=== PATIENT | male | born 1950 | race Caucasian/White ===

== ENCOUNTER 2017-04-03 09:49 | Inpatient (IN) ==
[2017-04-03] MEDS: Ipratropium/Albuterol Neb 3 ML IH PRN (15:28)
[2017-04-03] MEDS: *HR* OxyCODONE ER (12 HR) 40 MG TABLET PO SCH (18:54)
[2017-04-03] MEDS: Furosemide 40 MG TABLET PO SCH (18:54)
[2017-04-03] MEDS: Insulin NPH/REG 70/30 100 UNIT/ML (x5UNIT) SQ SCH (18:54)
[2017-04-03] MEDS: Apixaban 5 MG TABLET PO SCH (20:56)
[2017-04-04] MEDS: Ipratropium/Albuterol Neb 3 ML IH PRN ×2 (01:05→13:34)
[2017-04-04] MEDS: Levothyroxine 25 MCG TABLET PO SCH (05:49)
[2017-04-04] MEDS: *HR* OxyCODONE ER (12 HR) 40 MG TABLET PO SCH ×2 (05:49→16:40)
[2017-04-04 06:44] LABS: Basophils % 0.2 %; Eosinophils # 0.5 K/mcL (0.0-0.6); Eosinophils % 4.6 %; Hematocrit 40.9 % (37.5-50.1); Immature Granulocytes % 1.3 % (0-4); Lymphocytes # 2.5 K/mcL (0.6-4.6); Lymphocytes % 21.1 %; Mean Corpuscular HGB Conc 29.3 g/dL (31.6-35.5); Mean Corpuscular Hemoglobin 25.7 pg (28.0-33.3); Mean Corpuscular Volume 87.6 fL (83.0-100.0); Mean Platelet Volume 8.8 fL (9.4-12.4); Monocytes # 0.9 K/mcL (0.0-1.3); Monocytes % 7.8 %; Platelet Count 317 K/mcL (140-400); Red Blood Count 4.67 M/mcL (4.19-5.50); Red Cell Distribution Width 15.3 % (11.5-14.5)
[2017-04-04 06:47] LABS: Neutrophils # 7.5 K/mcL (1.6-8.9)
[2017-04-04 06:51] LABS: INR 1.1; Prothrombin Time 11.6 Seconds (9.4-12.1)
[2017-04-04 06:54] LABS: Activated Partial Thrombo Time 28.3 Seconds (26.0-36.0)
[2017-04-04 07:22] LABS: BUN/Creatinine Ratio 38 (6-26); Blood Urea Nitrogen 29 mg/dL (8-23); Calcium 8.2 mg/dL (8.6-10.3); Carbon Dioxide 46 mEq/L (23-29); Chloride 95 mEq/L (98-107); Glucose 134 mg/dL (70-105); Osmolality,Calculated 306 (280-300); Potassium 3.4 mEq/L (3.5-5.1); Sodium 144 mEq/L (136-145); eGFR For African Americans > 60 (> 60); eGFR For Non-African Americans > 60 (> 60)
[2017-04-04] MEDS: Lactobacillus 1 EACH CAP.SPRINK PO SCH (08:00)
[2017-04-04] MEDS: Metoprolol XL (24 HR) Succ 50 MG TAB.ER.24H PO SCH (08:00)
[2017-04-04] MEDS: Multivit/Ca/Min/Fe/FA 1 TAB TABLET PO SCH (08:01)
[2017-04-04] MEDS: Furosemide 40 MG TABLET PO SCH ×2 (08:01→16:40)
[2017-04-04] MEDS: Folic Acid 1 MG TABLET PO SCH (08:01)
[2017-04-04] MEDS: Apixaban 5 MG TABLET PO SCH ×2 (08:01→20:39)
[2017-04-04] MEDS: Insulin NPH/REG 70/30 100 UNIT/ML (x5UNIT) SQ SCH ×3 (08:01→16:41)
[2017-04-04] MEDS: Diltiazem CD (24hr) 120 MG CAPSULE PO SCH (08:01)
[2017-04-04] MEDS ORDERED: predniSONE 20 MG TABLET PO SCH (09:00)
--- NOTE | 2017-04-04 16:04 | Internal Med History&Physical ---
Date of Encounter: 04/04/17 Time of Encounter: 15:30 Assessment and Plan (1) Chronic atrial fibrillation Current visit: No Status: Acute Continue Eliquis. Continue Toprol and Cardizem for rate control. (2) Obstructive sleep apnea Current visit: No Status: Chronic Continue BiPAP at bedtime. (3) Hypokalemia Current visit: No Status: Acute Continue supplemental potassium and present dose Lasix. We will discontinue prednisone and monitor labs. (4) Diabetes mellitus type 2 in obese Current visit: No Status: Acute Hemoglobin A1c was 5.3% on 03/30/2017. Continue 70/30 insulin and monitor Accu- Cheks with SSI. (5) Acute exacerbation of congestive heart failure Current visit: No Status: Acute Continue Lasix, Zestril, and Toprol. Will monitor labs. Qualifiers: Heart failure type: unspecified Qualified Code(s): I50.9 - Heart failure, unspecified (6) Acute on chronic respiratory failure with hypoxia and hypercapnia Current visit: No Status: Acute Continue duo nebs when necessary. (7) Hypothyroidism Current visit: Yes Status: Chronic Continue Synthroid. Will check TSH in a.m. Qualifiers: Hypothyroidism type: unspecified Qualified Code(s): E03.9 - Hypothyroidism , unspecified Internal Medicine - H&P: HPI Chief complaint: Dyspnea Admitted From: Hospital to Hospital Transfer Plans for Post Hospital Care: Home History of present illness: Mr. Belcher is a 67 year old male who was hospitalized at [facility] March 30- after admission for dyspnea. He was diagnosed with exacerbation of COPD and acute on chronic CHF. He stabilized and was admitted to [facility] swing bed for ongoing care needs. His cardiovascular history is significant for hypertension. He has had chronic atrial fibrillation for approximately 2 years. He has been diagnosed with heart failure. An echocardiogram 10/17/2016 showed LVEF sited 50% valve function was not assessed on the limited study. The left ventricular end- diastolic diameter was elevated at 6.30 cm. The ventricular septum and posterior wall thickness measurements were normal at 1.0 cm. He denies ME DVT or pulmonary embolus. Reports a heart catheter done approximately 15 years ago without intervention. His respiratory history is significant for having smoked from age [age] up to 1 pack per day. He has a diagnosis of COPD and wears oxygen at home 01/09. He has NOAH and wears BiPAP at at bedtime. Past Med Surg Social Fam HX - Past Medical History Medical history: atrial fibrillation, diabetes, hypertension, RA, thyroid disease Psychiatric history: depression - Past Surgical History Surgical History: orthopedic, other - Social History Smoking Status: Former smoker Smokeless Tobacco Status: No Alcohol use: none Drug use: none - Family History Mother Living Status: Hx Family Cardiac Disorders: Yes Hx Family Endocrine Disorder: Yes (DM) Father Living Status: Hx Family Cardiac Disorders: Yes Internal Medicine - H&P: Meds Folic Acid 1 mg PO QAM 10/17/14 [History] Levothyroxine [Synthroid] 50 mcg PO QAM 10/18/14 [History] Apixaban [Eliquis] 5 mg PO BID 02/26/15 [History] Ipratropium/Albuterol Neb [Duoneb] 3 ml IH Q4H PRN 02/26/15 [History] Insulin Lispro Protamin/Lispro [Humalog Mix 75-25 Kwikpen] 25 unit SQ BID [History] Duloxetine HCl [Cymbalta] 60 mg PO DAILY 10/07/16 [History] Lisinopril [Zestril] 5 mg PO DAILY 10/07/16 [History] Metoprolol XL (24 HR) Succ [Toprol Xl] 50 mg PO DAILY 10/07/16 [History] Tamsulosin [Flomax] 0.4 mg PO DAILY 10/07/16 [History] Multivits,Ca,Min/Iron/FA/Lycop [Centrum Men's Tablet] 1 tab PO DAILY 10/17/16 [ History] Diltiazem CD (24hr) [Cardizem CD] 120 mg PO DAILY #30 cap.er.24h 01/22/17 [Rx] Lactobacillus [Culturelle] 2 each PO DAILY #20 cap.sprink 01/22/17 [Rx] OxyCODONE ER (12 HR) [OxyCONTIN] 80 mg PO Q12H 03/30/17 [History] Furosemide [Lasix] 80 mg PO BID #30 tablet 04/03/17 [Rx] Hydroxychloroquine [Plaquenuil] 400 mg PO QAM tablet 04/03/17 [Rx] Potassium Chloride 40 meq PO BID #30 tab.er.prt 04/03/17 [Rx] predniSONE [PredniSONE] 20 mg PO DAILY #4 tablet 04/03/17 [Rx] 3 Allergy/AdvReac Type Severity Reaction Status Date / Time clindamycin AdvReac Diarrhea Verified 11/23/16 07:17 All Systems PM: A 10-system review of systems was performed and is negative for pertinent findings except as documented above in the HPI. Review of systems: Gen.: He states his weight has decreased from 556 pounds 2 years ago to present weight of 440 pounds. He has had significant weight fluctuations past few weeks based on fluid retention Cardiovascular: As per history of present illness Respiratory: As per history of present illness GI: He denies disorders of his liver gallbladder or exocrine pancreas : He denies hematuria or dysuria or kidney stones Neurologic: He denies large distribution strokes or seizures. Endocrine: He was diagnosed with DM 2 approximately age 47. He has hypothyroidism but denies hyperlipidemia Hematology/oncology: He has anemia on most labs since 2015. He was unaware of this. He denies internal malignancies. Psychiatric: He has history of depression. 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 - Constitutional Vitals: Temp Pulse Resp BP Pulse Ox 98 F 74 18 116/78 97 04/04/17 06:43 04/04/17 06:43 04/04/17 06:43 04/04/17 06:43 04/04/17 06:43 Exam: Gen.: He is a well-developed morbidly obese male lying in bed who appears in no acute distress HEENT: Head is atraumatic and normocephalic. Eyes: EOMI. There is no scleral icterus. Mouth: Mucosa is moist. Neck: He has a large jowl. There is no thyromegaly or adenopathy noted. Heart: Irregularly irregular with rate approximately 96/m. No murmurs or gallops are heard. Lungs: No wheezes or crackles are heard. Abdomen: He has a large pannus. He has induration with woody edema of the left lateral abdominal wall. The abdomen is otherwise nontender to palpation. Extremities: He has very marked venous stasis pigmentation discoloration of his lower legs bilaterally. Dorsalis pedis and posterior tibial pulses are nonpalpable. He has trace to 1+ pitting edema lower legs and dorsum of the feet. Neurologic: Mental status: He is talkative and a good historian. Cranial nerves : Smile is symmetric. Forehead wrinkles bilaterally. Tongue protrudes midline. EOMI. Motor: There is no pronator drift with the left arm. The right arm does not move well secondary to previous brachial plexus injury. He appears to have right wrist drop. Cerebellar: Finger to nose is intact with the left hand and not attempted with the right hand. Skin: Warm and dry. Internal Med - H&P Results - Labs CBC & Chem 7: 04/04/17 05:41 04/04/17 05:41 Labs: Short CBC 04/04/17 Range/Units 05:41 WBC 11.6 H (4.3-11.1) K/mcL Hgb 12.0 L (12.9-16.9) g/dL Hct 40.9 (37.5-50.1) % Plt Count 317 (140-400) K/mcL Neutrophils # 7.5 (1.6-8.9) K/mcL [facility] 04/04/17 05:41 Sodium 144 Potassium 3.4 L Chloride 95 L Carbon Dioxide 46 H* BUN 29 H Creatinine 0.77 Glucose 134 H Calcium 8.2 L
[2017-04-05] MEDS: Ipratropium/Albuterol Neb 3 ML IH PRN ×2 (05:37→23:55)
[2017-04-05 05:40] LABS: Magnesium 1.9 mg/dL (1.6-2.6); Phosphorous 2.9 mg/dL (2.7-4.5)
[2017-04-05] MEDS: *HR* OxyCODONE ER (12 HR) 40 MG TABLET PO SCH ×2 (06:00→17:01)
[2017-04-05] MEDS: Levothyroxine 25 MCG TABLET PO SCH (06:00)
[2017-04-05] MEDS: Insulin NPH/REG 70/30 100 UNIT/ML (x5UNIT) SQ SCH ×2 (09:15→17:00)
[2017-04-05] MEDS: Diltiazem CD (24hr) 120 MG CAPSULE PO SCH (09:24)
[2017-04-05] MEDS: Furosemide 40 MG TABLET PO SCH ×2 (09:24→17:01)
[2017-04-05] MEDS: Multivit/Ca/Min/Fe/FA 1 TAB TABLET PO SCH (09:25)
[2017-04-05] MEDS: Apixaban 5 MG TABLET PO SCH ×2 (09:25→21:22)
[2017-04-05] MEDS: Folic Acid 1 MG TABLET PO SCH (09:25)
[2017-04-05] MEDS: Metoprolol XL (24 HR) Succ 50 MG TAB.ER.24H PO SCH (09:26)
[2017-04-05 10:23] LABS: Folate 21.4 ng/mL (3.0-16.0)
--- NOTE | 2017-04-05 10:32 | Internal Med Progress Note ---
Date of Encounter: 04/05/17 Time of Encounter: 10:25 - Assessment and plan (1) Chronic atrial fibrillation Current Visit: No Status: Acute Assessment and plan: April 05. Continue Eliquis with Toprol and Cardizem. (2) Obstructive sleep apnea Current Visit: No Status: Chronic Assessment and plan: April 05. Continue BiPAP (3) Hypokalemia Current Visit: No Status: Acute Assessment and plan: April 05. Continue Lasix and potassium. (4) Diabetes mellitus type 2 in obese Current Visit: No Status: Acute Assessment and plan: April 05. Hemoglobin A1c was 5.3% on 03/30/2017. Continue 70/30 insulin and monitor Accu-Cheks with SSI. (5) Acute exacerbation of congestive heart failure Current Visit: No Status: Acute Assessment and plan: April 05. Continue Lasix, Zestril, Toprol, and potassium. Qualifiers: Heart failure type: unspecified Qualified Code(s): I50.9 - Heart failure, unspecified (6) Acute on chronic respiratory failure with hypoxia and hypercapnia Current Visit: No Status: Acute Assessment and plan: April 05. Continue duo nebs when necessary (7) Hypothyroidism Current Visit: Yes Status: Chronic Assessment and plan: April 05. TSH has been ordered. Qualifiers: Hypothyroidism type: unspecified Qualified Code(s): E03.9 - Hypothyroidism , unspecified (8) Anemia Current Visit: Yes Status: Acute Assessment and plan: April 05. Anemia testing showed iron 48, transferrin saturation 18%, transferrin 189, and ferritin 128. B12 and folate are pending. Will start ferrous sulfate with vitamin C in a.m. Qualifiers: Anemia type: unspecified type Qualified Code(s): D64.9 - Anemia, unspecified - Subjective Interval history: April 05. He has no new complaints. - Constitutional Vitals: Temp Pulse Resp BP Pulse Ox 98.7 F 76 18 107/64 95 04/04/17 19:23 04/04/17 19:23 04/04/17 19:23 04/04/17 19:23 04/05/17 05:37 Exam: He is resting in bed and appears in no acute distress. Affect is bright and cheerful. I reviewed his medications and lab results. Internal Medicine: Result - Labs CBC & Chem 7: 04/04/17 05:41 04/04/17 05:41 - ABG Interpretation ABG results: PT/INR, D-dimer PT 11.6 Seconds (9.4-12.1) 04/04/17 05:41 Consult Discharge Plan - Plan Referrals: Valdo Morrow DO [Primary Care Provider] - 1 week
[2017-04-05] MEDS: Lactobacillus 1 EACH CAP.SPRINK PO SCH (11:05)
[2017-04-06] MEDS: Ascorbic Acid 500 MG TABLET PO SCH (06:29)
[2017-04-06] MEDS: *HR* OxyCODONE ER (12 HR) 40 MG TABLET PO SCH ×2 (06:29→17:47)
[2017-04-06] MEDS: Levothyroxine 25 MCG TABLET PO SCH (06:29)
[2017-04-06] MEDS: *HR* OxyCODONE Immed Rel 5 MG TABLET PO PRN (08:31)
[2017-04-06] MEDS: Apixaban 5 MG TABLET PO SCH ×2 (08:32→20:09)
[2017-04-06] MEDS: Metoprolol XL (24 HR) Succ 50 MG TAB.ER.24H PO SCH (08:32)
[2017-04-06] MEDS: Folic Acid 1 MG TABLET PO SCH (08:32)
[2017-04-06] MEDS: Multivit/Ca/Min/Fe/FA 1 TAB TABLET PO SCH (08:32)
[2017-04-06] MEDS: Furosemide 40 MG TABLET PO SCH ×2 (08:33→17:47)
[2017-04-06] MEDS: Diltiazem CD (24hr) 120 MG CAPSULE PO SCH (08:33)
[2017-04-06] MEDS: Insulin NPH/REG 70/30 100 UNIT/ML (x5UNIT) SQ SCH ×3 (08:33→17:47)
[2017-04-06] MEDS: Ipratropium/Albuterol Neb 3 ML IH PRN (22:02)
[2017-04-07] MEDS: *HR* OxyCODONE ER (12 HR) 40 MG TABLET PO SCH ×2 (06:38→18:38)
[2017-04-07] MEDS: Levothyroxine 25 MCG TABLET PO SCH (06:38)
[2017-04-07] MEDS: Ascorbic Acid 500 MG TABLET PO SCH (06:39)
[2017-04-07] MEDS: Insulin NPH/REG 70/30 100 UNIT/ML (x5UNIT) SQ SCH ×2 (09:40→18:37)
[2017-04-07] MEDS: Furosemide 40 MG TABLET PO SCH ×2 (09:41→18:38)
[2017-04-07] MEDS: Apixaban 5 MG TABLET PO SCH ×2 (09:42→20:40)
[2017-04-07] MEDS: Diltiazem CD (24hr) 120 MG CAPSULE PO SCH (09:42)
[2017-04-07] MEDS: Multivit/Ca/Min/Fe/FA 1 TAB TABLET PO SCH (09:42)
[2017-04-07] MEDS: Metoprolol XL (24 HR) Succ 50 MG TAB.ER.24H PO SCH (09:42)
[2017-04-07] MEDS: Folic Acid 1 MG TABLET PO SCH (09:42)
[2017-04-07] MEDS: *HR* OxyCODONE Immed Rel 5 MG TABLET PO PRN ×2 (09:43→20:40)
[2017-04-07] MEDS: Ipratropium/Albuterol Neb 3 ML IH PRN ×2 (10:38→23:59)
--- NOTE | 2017-04-07 15:30 | Internal Med Progress Note ---
Date of Encounter: 04/07/17 Time of Encounter: 15:20 - Assessment and plan (1) Chronic atrial fibrillation Current Visit: No Status: Acute Assessment and plan: April 05. Continue Eliquis with Toprol and Cardizem. (2) Obstructive sleep apnea Current Visit: No Status: Chronic Assessment and plan: April 05. Continue BiPAP (3) Hypokalemia Current Visit: No Status: Acute Assessment and plan: April 05. Continue Lasix and potassium. April 07. Recheck labs in a.m. (4) Diabetes mellitus type 2 in obese Current Visit: No Status: Acute Assessment and plan: April 05. Hemoglobin A1c was 5.3% on 03/30/2017. Continue 70/30 insulin and monitor Accu-Cheks with SSI. (5) Acute exacerbation of congestive heart failure Current Visit: No Status: Acute Assessment and plan: April 05. Continue Lasix, Zestril, Toprol, and potassium. Qualifiers: Heart failure type: unspecified Qualified Code(s): I50.9 - Heart failure, unspecified (6) Acute on chronic respiratory failure with hypoxia and hypercapnia Current Visit: No Status: Acute Assessment and plan: April 05. Continue duo nebs when necessary (7) Hypothyroidism Current Visit: Yes Status: Chronic Assessment and plan: April 05. TSH has been ordered. Laboratory 27. TSH was normal at 4.320. Continue present dose Synthroid. Qualifiers: Hypothyroidism type: unspecified Qualified Code(s): E03.9 - Hypothyroidism , unspecified (8) Anemia Current Visit: Yes Status: Acute Assessment and plan: April 05. Anemia testing showed iron 48, transferrin saturation 18%, transferrin 189, and ferritin 128. B12 and folate are pending. Will start ferrous sulfate with vitamin C in a.m. Qualifiers: Anemia type: unspecified type Qualified Code(s): D64.9 - Anemia, unspecified - Subjective Interval history: April 05. He has no new complaints. April 07. He has no new complaints and feels improved. - Constitutional Vitals: Temp Pulse Resp BP Pulse Ox 98.1 F 80 16 120/72 96 04/07/17 06:24 04/07/17 06:24 04/07/17 10:43 04/07/17 06:24 04/07/17 10:43 Exam: He is resting comfortably in bed and appears in no acute distress. His edema of lower legs and feet have lessened. His affect is bright and cheerful. I reviewed his medications and lab results. Internal Medicine: Result - Labs CBC & Chem 7: 04/04/17 05:41 04/04/17 05:41 - ABG Interpretation ABG results: PT/INR, D-dimer PT 11.6 Seconds (9.4-12.1) 04/04/17 05:41 Consult Discharge Plan - Plan Referrals: Valdo Morrow DO [Primary Care Provider] - 1 week
[2017-04-08] MEDS: Levothyroxine 25 MCG TABLET PO SCH (06:45)
[2017-04-08] MEDS: *HR* OxyCODONE ER (12 HR) 40 MG TABLET PO SCH ×2 (06:45→18:03)
[2017-04-08] MEDS: Ascorbic Acid 500 MG TABLET PO SCH (06:45)
[2017-04-08] MEDS: Insulin NPH/REG 70/30 100 UNIT/ML (x5UNIT) SQ SCH ×2 (09:01→18:03)
[2017-04-08] MEDS: Folic Acid 1 MG TABLET PO SCH ×2 (09:03→11:57)
[2017-04-08] MEDS: Apixaban 5 MG TABLET PO SCH ×2 (09:04→23:49)
[2017-04-08] MEDS: Multivit/Ca/Min/Fe/FA 1 TAB TABLET PO SCH (09:04)
[2017-04-08] MEDS: Furosemide 40 MG TABLET PO SCH ×3 (09:05→18:03)
[2017-04-08] MEDS: Ipratropium/Albuterol Neb 3 ML IH PRN ×2 (10:12→23:33)
--- NOTE | 2017-04-08 11:13 | Internal Med Progress Note ---
Date of Encounter: 04/08/17 Time of Encounter: 11:05 - Assessment and plan (1) Chronic atrial fibrillation Current Visit: No Status: Acute Assessment and plan: April 05. Continue Eliquis with Toprol and Cardizem. (2) Obstructive sleep apnea Current Visit: No Status: Chronic Assessment and plan: April 05. Continue BiPAP (3) Hypokalemia Current Visit: No Status: Acute Assessment and plan: April 05. Continue Lasix and potassium. April 07. Recheck labs in a.m. (4) Diabetes mellitus type 2 in obese Current Visit: No Status: Acute Assessment and plan: April 05. Hemoglobin A1c was 5.3% on 03/30/2017. Continue 70/30 insulin and monitor Accu-Cheks with SSI. (5) Acute exacerbation of congestive heart failure Current Visit: No Status: Acute Assessment and plan: April 05. Continue Lasix, Zestril, Toprol, and potassium. April 08. Clinically stable. Continue above regimen. Qualifiers: Heart failure type: unspecified Qualified Code(s): I50.9 - Heart failure, unspecified (6) Acute on chronic respiratory failure with hypoxia and hypercapnia Current Visit: No Status: Acute Assessment and plan: April 05. Continue duo nebs when necessary (7) Hypothyroidism Current Visit: Yes Status: Chronic Assessment and plan: April 05. TSH has been ordered. Laboratory . TSH was normal at 4.320. Continue present dose Synthroid. Qualifiers: Hypothyroidism type: unspecified Qualified Code(s): E03.9 - Hypothyroidism , unspecified (8) Anemia Current Visit: Yes Status: Acute Assessment and plan: April 05. Anemia testing showed iron 48, transferrin saturation 18%, transferrin 189, and ferritin 128. B12 and folate are pending. Will start ferrous sulfate with vitamin C in a.m. Qualifiers: Anemia type: unspecified type Qualified Code(s): D64.9 - Anemia, unspecified (9) Hypotension Current Visit: Yes Status: Acute Assessment and plan: April 08. Will discontinue Cardizem and lisinopril. Qualifiers: Hypotension type: unspecified hypotension type Qualified Code(s): I95.9 - Hypotension, unspecified - Subjective Interval history: April 05. He has no new complaints. April 07. He has no new complaints and feels improved. April 08. He has no new complaints. - Constitutional Vitals: Temp Pulse Resp BP Pulse Ox 97.7 F 102 15 81/55 94 04/08/17 06:49 04/08/17 06:49 04/08/17 10:13 04/08/17 06:49 04/08/17 10:13 Exam: He is lying in bed resting comfortably. His edema has slightly lessened further. I reviewed his medications and lab results. Internal Medicine: Result - Labs CBC & Chem 7: 04/04/17 05:41 04/04/17 05:41 - ABG Interpretation ABG results: PT/INR, D-dimer PT 11.6 Seconds (9.4-12.1) 04/04/17 05:41 Consult Discharge Plan - Plan Referrals: Valdo Morrow DO [Primary Care Provider] - 1 week
[2017-04-08] MEDS: *HR* OxyCODONE Immed Rel 5 MG TABLET PO PRN (23:49)
[2017-04-09 05:57] LABS: Basophils % 0.3 %; Eosinophils # 0.6 K/mcL (0.0-0.6); Eosinophils % 4.7 %; Hematocrit 36.5 % (37.5-50.1); Hemoglobin 11.1 g/dL (12.9-16.9); Lymphocytes # 2.5 K/mcL (0.6-4.6); Lymphocytes % 19.1 %; Mean Corpuscular HGB Conc 30.4 g/dL (31.6-35.5); Mean Corpuscular Hemoglobin 26.1 pg (28.0-33.3); Mean Corpuscular Volume 85.7 fL (83.0-100.0); Mean Platelet Volume 9.5 fL (9.4-12.4); Monocytes # 1.1 K/mcL (0.0-1.3); Monocytes % 8.3 %; Neutrophils # 8.8 K/mcL (1.6-8.9); Platelet Count 255 K/mcL (140-400); Red Blood Count 4.26 M/mcL (4.19-5.50); Red Cell Distribution Width 15.8 % (11.5-14.5); Segmented Neutrophils % 66.6 %
[2017-04-09] MEDS: *HR* OxyCODONE ER (12 HR) 40 MG TABLET PO SCH ×3 (06:14→20:23)
[2017-04-09] MEDS: Levothyroxine 25 MCG TABLET PO SCH (06:14)
[2017-04-09] MEDS: Ascorbic Acid 500 MG TABLET PO SCH (06:14)
[2017-04-09 07:06] LABS: BUN/Creatinine Ratio 21 (6-26); Blood Urea Nitrogen 20 mg/dL (8-23); Calcium 8.5 mg/dL (8.6-10.3); Carbon Dioxide 43 mEq/L (23-29); Chloride 92 mEq/L (98-107); Glucose 134 mg/dL (70-105); Osmolality,Calculated 297 (280-300); Potassium 3.6 mEq/L (3.5-5.1); Sodium 141 mEq/L (136-145); eGFR For African Americans > 60 (> 60); eGFR For Non-African Americans > 60 (> 60)
[2017-04-09] MEDS: Furosemide 40 MG TABLET PO SCH ×2 (08:00→17:14)
[2017-04-09] MEDS: Multivit/Ca/Min/Fe/FA 1 TAB TABLET PO SCH (08:00)
[2017-04-09] MEDS: Insulin NPH/REG 70/30 100 UNIT/ML (x5UNIT) SQ SCH ×2 (08:00→17:17)
[2017-04-09] MEDS: Apixaban 5 MG TABLET PO SCH ×2 (08:08→20:23)
[2017-04-09] MEDS: Ipratropium/Albuterol Neb 3 ML IH PRN (22:13)
[2017-04-10] MEDS: Levothyroxine 25 MCG TABLET PO SCH (06:03)
[2017-04-10] MEDS: *HR* OxyCODONE ER (12 HR) 40 MG TABLET PO SCH ×2 (06:03→17:29)
[2017-04-10] MEDS: Ascorbic Acid 500 MG TABLET PO SCH (06:03)
[2017-04-10] MEDS: Multivit/Ca/Min/Fe/FA 1 TAB TABLET PO SCH (08:08)
[2017-04-10] MEDS: Apixaban 5 MG TABLET PO SCH ×2 (08:08→20:31)
[2017-04-10] MEDS: Insulin NPH/REG 70/30 100 UNIT/ML (x5UNIT) SQ SCH ×2 (08:08→17:29)
[2017-04-10] MEDS: *HR* OxyCODONE Immed Rel 5 MG TABLET PO PRN (08:08)
[2017-04-10] MEDS: Furosemide 40 MG TABLET PO SCH ×2 (08:09→17:29)
--- NOTE | 2017-04-10 11:10 | Internal Med Progress Note ---
Date of Encounter: 04/10/17 Time of Encounter: 11:00 - Assessment and plan (1) Chronic atrial fibrillation Current Visit: No Status: Acute Assessment and plan: April 05. Continue Eliquis with Toprol and Cardizem. April 10. Continue Toprol and eliquis (2) Obstructive sleep apnea Current Visit: No Status: Chronic Assessment and plan: April 05. Continue BiPAP (3) Hypokalemia Current Visit: No Status: Acute Assessment and plan: April 05. Continue Lasix and potassium. April 07. Recheck labs in a.m. April 10. Potassium level normal. Continue present regimen (4) Diabetes mellitus type 2 in obese Current Visit: No Status: Acute Assessment and plan: April 05. Hemoglobin A1c was 5.3% on 03/30/2017. Continue 70/30 insulin and monitor Accu-Cheks with SSI. (5) Acute exacerbation of congestive heart failure Current Visit: No Status: Acute Assessment and plan: April 05. Continue Lasix, Zestril, Toprol, and potassium. April 08. Clinically stable. Continue above regimen. April 10. Remains stable on Lasix Toprol and potassium. He is off Zestril because of borderline hypotension. Qualifiers: Heart failure type: unspecified Qualified Code(s): I50.9 - Heart failure, unspecified (6) Acute on chronic respiratory failure with hypoxia and hypercapnia Current Visit: No Status: Acute Assessment and plan: April 05. Continue duo nebs when necessary (7) Hypothyroidism Current Visit: Yes Status: Chronic Assessment and plan: April 05. TSH has been ordered. Laboratory 27. TSH was normal at 4.320. Continue present dose Synthroid. Qualifiers: Hypothyroidism type: unspecified Qualified Code(s): E03.9 - Hypothyroidism , unspecified (8) Anemia Current Visit: Yes Status: Acute Assessment and plan: April 05. Anemia testing showed iron 48, transferrin saturation 18%, transferrin 189, and ferritin 128. B12 and folate are pending. Will start ferrous sulfate with vitamin C in a.m. April 10. B12 and folate were unremarkable. Continue ferrous sulfate with vitamin C. Qualifiers: Anemia type: unspecified type Qualified Code(s): D64.9 - Anemia, unspecified (9) Hypotension Current Visit: Yes Status: Acute Assessment and plan: April 08. Will discontinue Cardizem and lisinopril. April 10. Blood pressure improved off Cardizem and lisinopril. Continue present regimen Qualifiers: Hypotension type: unspecified hypotension type Qualified Code(s): I95.9 - Hypotension, unspecified - Subjective Interval history: April 05. He has no new complaints. April 07. He has no new complaints and feels improved. April 08. He has no new complaints. April 10. He has no new complaints except some stiffness in his neck. - Constitutional Vitals: Temp Pulse Resp BP Pulse Ox 98.1 F 95 18 93/57 94 04/10/17 06:33 04/10/17 06:33 04/10/17 06:33 04/10/17 06:33 04/10/17 06:33 Exam: He is resting comfortably in bed and appears in no acute distress. His affect is bright and cheerful. I reviewed his medications and lab results. Internal Medicine: Result - Labs CBC & Chem 7: 04/09/17 04:25 04/09/17 04:09 - ABG Interpretation ABG results: PT/INR, D-dimer PT 11.6 Seconds (9.4-12.1) 04/04/17 05:41 Consult Discharge Plan - Plan Referrals: Valdo Morrow DO [Primary Care Provider] - 1 week
[2017-04-10] MEDS: Folic Acid 1 MG TABLET PO SCH (12:32)
[2017-04-10] MEDS: Ipratropium/Albuterol Neb 3 ML IH PRN (22:30)
[2017-04-11] MEDS: *HR* OxyCODONE ER (12 HR) 40 MG TABLET PO SCH ×2 (06:15→16:08)
[2017-04-11] MEDS: Levothyroxine 25 MCG TABLET PO SCH (06:15)
[2017-04-11] MEDS: Ascorbic Acid 500 MG TABLET PO SCH (06:15)
[2017-04-11] MEDS: Insulin NPH/REG 70/30 100 UNIT/ML (x5UNIT) SQ SCH ×2 (08:05→16:09)
[2017-04-11] MEDS: Furosemide 40 MG TABLET PO SCH ×2 (08:06→16:09)
[2017-04-11] MEDS: Apixaban 5 MG TABLET PO SCH ×2 (08:06→20:08)
[2017-04-11] MEDS: Metoprolol XL (24 HR) Succ 50 MG TAB.ER.24H PO SCH (08:07)
[2017-04-11] MEDS: Multivit/Ca/Min/Fe/FA 1 TAB TABLET PO SCH (08:07)
[2017-04-11] MEDS: Ipratropium/Albuterol Neb 3 ML IH PRN ×2 (11:30→23:28)
[2017-04-12] MEDS: *HR* OxyCODONE ER (12 HR) 40 MG TABLET PO SCH ×2 (05:59→16:44)
[2017-04-12] MEDS: Levothyroxine 25 MCG TABLET PO SCH (05:59)
[2017-04-12] MEDS: Ascorbic Acid 500 MG TABLET PO SCH (06:00)
[2017-04-12] MEDS: Metoprolol XL (24 HR) Succ 50 MG TAB.ER.24H PO SCH (07:51)
[2017-04-12] MEDS: Furosemide 40 MG TABLET PO SCH ×2 (07:51→16:44)
[2017-04-12] MEDS: Multivit/Ca/Min/Fe/FA 1 TAB TABLET PO SCH (07:51)
[2017-04-12] MEDS: Insulin NPH/REG 70/30 100 UNIT/ML (x5UNIT) SQ SCH ×2 (07:52→16:45)
[2017-04-12] MEDS: Apixaban 5 MG TABLET PO SCH ×2 (07:53→20:03)
[2017-04-12] MEDS: Folic Acid 1 MG TABLET PO SCH (15:27)
--- NOTE | 2017-04-12 16:34 | Internal Med Progress Note ---
Date of Encounter: 04/12/17 Time of Encounter: 16:27 - Assessment and plan (1) Chronic atrial fibrillation Current Visit: No Status: Acute Assessment and plan: April 05. Continue Eliquis with Toprol and Cardizem. April 10. Continue Toprol and eliquis (2) Obstructive sleep apnea Current Visit: No Status: Chronic Assessment and plan: April 05. Continue BiPAP (3) Hypokalemia Current Visit: No Status: Acute Assessment and plan: April 05. Continue Lasix and potassium. April 07. Recheck labs in a.m. April 10. Potassium level normal. Continue present regimen April 12. Will recheck labs in a.m. (4) Diabetes mellitus type 2 in obese Current Visit: No Status: Acute Assessment and plan: April 05. Hemoglobin A1c was 5.3% on 03/30/2017. Continue 70/30 insulin and monitor Accu-Cheks with SSI. (5) Acute exacerbation of congestive heart failure Current Visit: No Status: Acute Assessment and plan: April 05. Continue Lasix, Zestril, Toprol, and potassium. April 08. Clinically stable. Continue above regimen. April 10. Remains stable on Lasix Toprol and potassium. He is off Zestril because of borderline hypotension. Qualifiers: Heart failure type: unspecified Qualified Code(s): I50.9 - Heart failure, unspecified (6) Acute on chronic respiratory failure with hypoxia and hypercapnia Current Visit: No Status: Acute Assessment and plan: April 05. Continue duo nebs when necessary (7) Hypothyroidism Current Visit: Yes Status: Chronic Assessment and plan: April 05. TSH has been ordered. Laboratory 27. TSH was normal at 4.320. Continue present dose Synthroid. Qualifiers: Hypothyroidism type: unspecified Qualified Code(s): E03.9 - Hypothyroidism , unspecified (8) Anemia Current Visit: Yes Status: Acute Assessment and plan: April 05. Anemia testing showed iron 48, transferrin saturation 18%, transferrin 189, and ferritin 128. B12 and folate are pending. Will start ferrous sulfate with vitamin C in a.m. April 10. B12 and folate were unremarkable. Continue ferrous sulfate with vitamin C. Qualifiers: Anemia type: unspecified type Qualified Code(s): D64.9 - Anemia, unspecified (9) Hypotension Current Visit: Yes Status: Acute Assessment and plan: April 08. Will discontinue Cardizem and lisinopril. April 10. Blood pressure improved off Cardizem and lisinopril. Continue present regimen Qualifiers: Hypotension type: unspecified hypotension type Qualified Code(s): I95.9 - Hypotension, unspecified - Subjective Interval history: April 05. He has no new complaints. April 07. He has no new complaints and feels improved. April 08. He has no new complaints. April 10. He has no new complaints except some stiffness in his neck. April 12. He has no new complaints - Constitutional Vitals: Temp Pulse Resp BP Pulse Ox 97.5 F L 97 20 121/61 97 04/12/17 07:02 04/12/17 07:02 04/12/17 07:02 04/12/17 07:02 04/12/17 07:02 Exam: He is resting comfortably in bed and appears in no acute distress. He has 0 to trace pitting edema bilaterally in his lower shins. I reviewed his medications and lab results. Internal Medicine: Result - Labs CBC & Chem 7: 04/09/17 04:25 04/09/17 04:09 - ABG Interpretation ABG results: PT/INR, D-dimer PT 11.6 Seconds (9.4-12.1) 04/04/17 05:41 Consult Discharge Plan - Plan Referrals: aVldo Morrow DO [Primary Care Provider] - 1 week
[2017-04-12] MEDS: Ipratropium/Albuterol Neb 3 ML IH PRN (19:49)
[2017-04-13] MEDS: *HR* OxyCODONE Immed Rel 5 MG TABLET PO PRN (02:42)
[2017-04-13] MEDS: Ascorbic Acid 500 MG TABLET PO SCH (05:52)
[2017-04-13] MEDS: Levothyroxine 25 MCG TABLET PO SCH (05:52)
[2017-04-13] MEDS: *HR* OxyCODONE ER (12 HR) 40 MG TABLET PO SCH ×2 (05:53→16:36)
[2017-04-13 07:05] LABS: Basophils # 0.1 K/mcL (0.0-0.2); Basophils % 0.6 %; Eosinophils # 0.5 K/mcL (0.0-0.6); Hematocrit 35.5 % (37.5-50.1); Hemoglobin 10.7 g/dL (12.9-16.9); Immature Granulocytes % 0.6 % (0-4); Lymphocytes # 2.4 K/mcL (0.6-4.6); Lymphocytes % 18.7 %; Mean Corpuscular HGB Conc 30.1 g/dL (31.6-35.5); Mean Corpuscular Hemoglobin 26.1 pg (28.0-33.3); Mean Corpuscular Volume 86.6 fL (83.0-100.0); Monocytes # 0.8 K/mcL (0.0-1.3); Monocytes % 6.4 %; Neutrophils # 8.8 K/mcL (1.6-8.9); Platelet Count 301 K/mcL (140-400); Red Cell Distribution Width 15.5 % (11.5-14.5); Segmented Neutrophils % 69.7 %
[2017-04-13 07:29] LABS: BUN/Creatinine Ratio 17 (6-26); Blood Urea Nitrogen 15 mg/dL (8-23); Calcium 8.3 mg/dL (8.6-10.3); Carbon Dioxide 42 mEq/L (23-29); Chloride 93 mEq/L (98-107); Glucose 151 mg/dL (70-105); Magnesium 2.1 mg/dL (1.6-2.6); Osmolality,Calculated 296 (280-300); Potassium 3.9 mEq/L (3.5-5.1); Sodium 141 mEq/L (136-145); eGFR For African Americans > 60 (> 60); eGFR For Non-African Americans > 60 (> 60)
[2017-04-13] MEDS: Multivit/Ca/Min/Fe/FA 1 TAB TABLET PO SCH (09:12)
[2017-04-13] MEDS: Apixaban 5 MG TABLET PO SCH ×2 (09:12→20:48)
[2017-04-13] MEDS: Metoprolol XL (24 HR) Succ 50 MG TAB.ER.24H PO SCH (09:12)
[2017-04-13] MEDS: Insulin NPH/REG 70/30 100 UNIT/ML (x5UNIT) SQ SCH ×2 (09:13→16:36)
[2017-04-13] MEDS: Furosemide 40 MG TABLET PO SCH ×2 (09:13→16:36)
[2017-04-13] MEDS: Ipratropium/Albuterol Neb 3 ML IH PRN ×2 (11:02→21:15)
--- NOTE | 2017-04-13 18:16 | Internal Med Progress Note ---
Date of Encounter: 04/13/17 Time of Encounter: 18:10 - Assessment and plan (1) Chronic atrial fibrillation Current Visit: No Status: Acute Assessment and plan: April 05. Continue Eliquis with Toprol and Cardizem. April 10. Continue Toprol and eliquis (2) Obstructive sleep apnea Current Visit: No Status: Chronic Assessment and plan: April 05. Continue BiPAP (3) Hypokalemia Current Visit: No Status: Acute Assessment and plan: April 05. Continue Lasix and potassium. April 07. Recheck labs in a.m. April 10. Potassium level normal. Continue present regimen April 12. Will recheck labs in a.m. April 13. Potassium level slightly improved to 3.9. Continue present management. (4) Diabetes mellitus type 2 in obese Current Visit: No Status: Acute Assessment and plan: April 05. Hemoglobin A1c was 5.3% on 03/30/2017. Continue 70/30 insulin and monitor Accu-Cheks with SSI. (5) Acute exacerbation of congestive heart failure Current Visit: No Status: Acute Assessment and plan: April 05. Continue Lasix, Zestril, Toprol, and potassium. April 08. Clinically stable. Continue above regimen. April 10. Remains stable on Lasix Toprol and potassium. He is off Zestril because of borderline hypotension. Qualifiers: Heart failure type: unspecified Qualified Code(s): I50.9 - Heart failure, unspecified (6) Acute on chronic respiratory failure with hypoxia and hypercapnia Current Visit: No Status: Acute Assessment and plan: April 05. Continue duo nebs when necessary (7) Hypothyroidism Current Visit: Yes Status: Chronic Assessment and plan: April 05. TSH has been ordered. Laboratory 27. TSH was normal at 4.320. Continue present dose Synthroid. Qualifiers: Hypothyroidism type: unspecified Qualified Code(s): E03.9 - Hypothyroidism , unspecified (8) Anemia Current Visit: Yes Status: Acute Assessment and plan: April 05. Anemia testing showed iron 48, transferrin saturation 18%, transferrin 189, and ferritin 128. B12 and folate are pending. Will start ferrous sulfate with vitamin C in a.m. April 10. B12 and folate were unremarkable. Continue ferrous sulfate with vitamin C. April 13. Hemoglobin unimproved at 10.7. Continue to monitor CBC periodically. Qualifiers: Anemia type: unspecified type Qualified Code(s): D64.9 - Anemia, unspecified (9) Hypotension Current Visit: Yes Status: Acute Assessment and plan: April 08. Will discontinue Cardizem and lisinopril. April 10. Blood pressure improved off Cardizem and lisinopril. Continue present regimen Qualifiers: Hypotension type: unspecified hypotension type Qualified Code(s): I95.9 - Hypotension, unspecified (10) Seborrhea Current Visit: Yes Status: Acute Assessment and plan: April 13. Will prescribe Lotrisone cream to face. - Subjective Interval history: April 05. He has no new complaints. April 07. He has no new complaints and feels improved. April 08. He has no new complaints. April 10. He has no new complaints except some stiffness in his neck. April 12. He has no new complaints April 13. He complains of rash on his face. - Constitutional Vitals: Temp Pulse Resp BP Pulse Ox 97.6 F 93 14 106/62 95 04/13/17 06:17 04/13/17 06:17 04/13/17 11:02 04/13/17 06:17 04/13/17 11:02 Exam: He has seborrheic dermatitis on a significant part of his lower face and mandibular area Internal Medicine: Result - Labs CBC & Chem 7: 04/13/17 06:13 04/13/17 06:13 Labs: Short CBC 04/13/17 Range/Units 06:13 WBC 12.6 H (4.3-11.1) K/mcL Hgb 10.7 L (12.9-16.9) g/dL Hct 35.5 L (37.5-50.1) % Plt Count 301 (140-400) K/mcL Neutrophils # 8.8 (1.6-8.9) K/mcL BMP 04/13/17 06:13 Sodium 141 Potassium 3.9 Chloride 93 L Carbon Dioxide 42 H* BUN 15 Creatinine 0.90 Glucose 151 H Calcium 8.3 L - ABG Interpretation ABG results: PT/INR, D-dimer PT 11.6 Seconds (9.4-12.1) 04/04/17 05:41 Consult Discharge Plan - Plan Referrals: Valdo Morrow DO [Primary Care Provider] - 1 week
[2017-04-13] MEDS: Clotrimazole/Betameth Dip CRM 45 APPL/45 GM TUBE TP SCH ×3 (19:33→20:49)
[2017-04-14] MEDS: *HR* OxyCODONE ER (12 HR) 40 MG TABLET PO SCH ×2 (05:29→18:10)
[2017-04-14] MEDS: Ascorbic Acid 500 MG TABLET PO SCH (05:30)
[2017-04-14] MEDS: Levothyroxine 25 MCG TABLET PO SCH (05:30)
[2017-04-14] MEDS: Furosemide 40 MG TABLET PO SCH ×2 (07:20→16:59)
[2017-04-14] MEDS: Insulin NPH/REG 70/30 100 UNIT/ML (x5UNIT) SQ SCH ×2 (07:21→16:59)
[2017-04-14] MEDS: Multivit/Ca/Min/Fe/FA 1 TAB TABLET PO SCH (08:30)
[2017-04-14] MEDS: Clotrimazole/Betameth Dip CRM 45 APPL/45 GM TUBE TP SCH ×2 (08:33→21:16)
[2017-04-14] MEDS: Apixaban 5 MG TABLET PO SCH ×2 (08:36→21:16)
[2017-04-14] MEDS: Metoprolol XL (24 HR) Succ 50 MG TAB.ER.24H PO SCH (08:37)
[2017-04-14] MEDS: Folic Acid 1 MG TABLET PO SCH (12:06)
[2017-04-14] MEDS: Ipratropium/Albuterol Neb 3 ML IH PRN (12:40)
[2017-04-14] MEDS: Tobramycin/Dex Opth DROPS 2.5 ML BOTTLE LEFT EYE SCH (21:16)
[2017-04-14] MEDS: Tobramycin/Dex Opth DROPS 2.5 ML BOTTLE RIGHT EYE SCH (21:17)
[2017-04-15] MEDS: Ascorbic Acid 500 MG TABLET PO SCH (06:15)
[2017-04-15] MEDS: Levothyroxine 25 MCG TABLET PO SCH (06:15)
[2017-04-15] MEDS: *HR* OxyCODONE ER (12 HR) 40 MG TABLET PO SCH ×2 (06:15→16:55)
[2017-04-15] MEDS: Tobramycin/Dex Opth DROPS 2.5 ML BOTTLE LEFT EYE SCH ×2 (09:40→20:13)
[2017-04-15] MEDS: Furosemide 40 MG TABLET PO SCH ×2 (09:40→16:55)
[2017-04-15] MEDS: Multivit/Ca/Min/Fe/FA 1 TAB TABLET PO SCH (09:40)
[2017-04-15] MEDS: Metoprolol XL (24 HR) Succ 50 MG TAB.ER.24H PO SCH (09:40)
[2017-04-15] MEDS: Clotrimazole/Betameth Dip CRM 45 APPL/45 GM TUBE TP SCH ×2 (09:41→20:12)
[2017-04-15] MEDS: Tobramycin/Dex Opth DROPS 2.5 ML BOTTLE RIGHT EYE SCH ×2 (09:41→20:13)
[2017-04-15] MEDS: Insulin NPH/REG 70/30 100 UNIT/ML (x5UNIT) SQ SCH ×2 (09:41→16:55)
[2017-04-15] MEDS: Apixaban 5 MG TABLET PO SCH ×2 (09:42→20:13)
[2017-04-15] MEDS: Ipratropium/Albuterol Neb 3 ML IH PRN (12:57)
[2017-04-16] MEDS: *HR* OxyCODONE Immed Rel 5 MG TABLET PO PRN ×2 (02:18→20:53)
[2017-04-16] MEDS: *HR* OxyCODONE ER (12 HR) 40 MG TABLET PO SCH ×2 (05:35→17:17)
[2017-04-16] MEDS: Ascorbic Acid 500 MG TABLET PO SCH (05:35)
[2017-04-16] MEDS: Levothyroxine 25 MCG TABLET PO SCH (05:35)
[2017-04-16] MEDS: Insulin NPH/REG 70/30 100 UNIT/ML (x5UNIT) SQ SCH ×2 (07:30→17:16)
[2017-04-16] MEDS: Furosemide 40 MG TABLET PO SCH ×2 (08:02→17:17)
[2017-04-16] MEDS: Clotrimazole/Betameth Dip CRM 45 APPL/45 GM TUBE TP SCH ×2 (08:03→20:16)
[2017-04-16] MEDS: Apixaban 5 MG TABLET PO SCH ×2 (08:03→20:15)
[2017-04-16] MEDS: Metoprolol XL (24 HR) Succ 50 MG TAB.ER.24H PO SCH (08:04)
[2017-04-16] MEDS: Multivit/Ca/Min/Fe/FA 1 TAB TABLET PO SCH (08:04)
[2017-04-16] MEDS: Tobramycin/Dex Opth DROPS 2.5 ML BOTTLE LEFT EYE SCH ×2 (08:04→20:15)
[2017-04-16] MEDS: Tobramycin/Dex Opth DROPS 2.5 ML BOTTLE RIGHT EYE SCH ×2 (08:05→20:16)
[2017-04-16] MEDS: Ipratropium/Albuterol Neb 3 ML IH PRN ×2 (11:01→18:08)
[2017-04-16] MEDS: Folic Acid 1 MG TABLET PO SCH (11:58)
[2017-04-17 06:35] VITALS: BP 126/77
[2017-04-17] MEDS: Ascorbic Acid 500 MG TABLET PO SCH (06:51)
[2017-04-17] MEDS: Levothyroxine 25 MCG TABLET PO SCH (06:51)
[2017-04-17] MEDS: *HR* OxyCODONE ER (12 HR) 40 MG TABLET PO SCH (06:52)
[2017-04-17] MEDS: Multivit/Ca/Min/Fe/FA 1 TAB TABLET PO SCH (07:36)
[2017-04-17] MEDS: Metoprolol XL (24 HR) Succ 50 MG TAB.ER.24H PO SCH (07:36)
[2017-04-17] MEDS: Clotrimazole/Betameth Dip CRM 45 APPL/45 GM TUBE TP SCH (07:37)
[2017-04-17] MEDS: Furosemide 40 MG TABLET PO SCH (07:37)
[2017-04-17] MEDS: Tobramycin/Dex Opth DROPS 2.5 ML BOTTLE LEFT EYE SCH (07:37)
[2017-04-17] MEDS: Tobramycin/Dex Opth DROPS 2.5 ML BOTTLE RIGHT EYE SCH (07:37)
[2017-04-17] MEDS: Insulin NPH/REG 70/30 100 UNIT/ML (x5UNIT) SQ SCH (07:37)
[2017-04-17] MEDS: Apixaban 5 MG TABLET PO SCH (07:39)
[2017-04-17] MEDS: Ipratropium/Albuterol Neb 3 ML IH PRN (09:30)
--- NOTE | 2017-04-17 10:53 | Discharge Summary ---
Date of Encounter: 04/17/17 Time of Encounter: 10:40 - Discharge Diagnosis (1) Chronic atrial fibrillation Priority: Primary Status: Acute (2) Obstructive sleep apnea Priority: Secondary Status: Chronic (3) Hypokalemia Priority: Secondary Status: Resolved (4) Diabetes mellitus type 2 in obese Priority: Secondary Status: Chronic (5) Acute exacerbation of congestive heart failure Priority: Secondary Status: Acute Qualifiers: Heart failure type: unspecified Qualified Code(s): I50.9 - Heart failure, unspecified (6) Acute on chronic respiratory failure with hypoxia and hypercapnia Priority: Secondary Status: Acute (7) Hypothyroidism Priority: Secondary Status: Chronic Qualifiers: Hypothyroidism type: unspecified Qualified Code(s): E03.9 - Hypothyroidism , unspecified (8) Anemia Priority: Secondary Status: Chronic Qualifiers: Anemia type: unspecified type Qualified Code(s): D64.9 - Anemia, unspecified (9) Hypotension Priority: Secondary Status: Resolved Qualifiers: Hypotension type: unspecified hypotension type Qualified Code(s): I95.9 - Hypotension, unspecified (10) Seborrhea Priority: Secondary Status: Acute Hospital course: Mr. Belcher is a 67 year old male who was hospitalized at [facility] March 30- after admission for dyspnea. He was diagnosed with exacerbation of COPD and acute on chronic CHF. He stabilized and was admitted to [facility] swing bed for ongoing care needs. Initial orders were written by the discharging physicians at [facility]. I saw him on April 04 and performed the swing bed history and physical. He had physical therapy and occupational therapy evaluations with ongoing intervention. He made satisfactory progress and he will continue with home health services including PT and OT. Cardizem and lisinopril were discontinued because of hypotension. His blood pressure returned to satisfactory level off his medications. Anemia testing showed findings consistent with iron deficiency. He will be given ferrous sulfate with vitamin C at discharge. Folate level returned elevated so folate dose was reduced to every other day. On April 17 arrangements were completed for him to be discharged home. He will follow with his PCP Dr. Morrow within 1 week. - Time Spent with Patient Total time spent providing and/or coordinating discharge services: - Discharge Medications Home Medications: Levothyroxine [Synthroid] 50 mcg PO QAM 10/18/14 [History] Apixaban [Eliquis] 5 mg PO BID 02/26/15 [History] Ipratropium/Albuterol Neb [Duoneb] 3 ml IH Q4H PRN 02/26/15 [History] Insulin Lispro Protamin/Lispro [Humalog Mix 75-25 Kwikpen] 25 unit SQ BID [History] Duloxetine HCl [Cymbalta] 60 mg PO DAILY 10/07/16 [History] Metoprolol XL (24 HR) Succ [Toprol Xl] 50 mg PO DAILY 10/07/16 [History] Tamsulosin [Flomax] 0.4 mg PO DAILY 10/07/16 [History] Multivits,Ca,Min/Iron/FA/Lycop [Centrum Men's Tablet] 1 tab PO DAILY 10/17/16 [ History] OxyCODONE ER (12 HR) [OxyCONTIN] 80 mg PO Q12H 03/30/17 [History] Furosemide [Lasix] 80 mg PO BID #30 tablet 04/03/17 [Rx] Hydroxychloroquine [Plaquenuil] 400 mg PO QAM tablet 04/03/17 [Rx] Potassium Chloride 40 meq PO BID #30 tab.er.prt 04/03/17 [Rx] Ascorbic Acid [Vitamin C] 500 mg PO 0630 #30 tablet 04/17/17 [Rx] Clotrimazole/Betamethasone Dip [Lotrisone Cream] 15 gm TP BID 5 Days #1 pkg 10/27 [Rx] Ferrous Sulfate 325 mg PO 0630 #30 tablet 04/17/17 [Rx] Folic Acid 1 mg PO Q48H tablet 04/17/17 [Rx] Allergies/Adverse Reactions: 3 Allergy/AdvReac Type Severity Reaction Status Date / Time clindamycin AdvReac Diarrhea Verified 11/23/16 07:17 Date of admission: 04/03/17 11:41 Primary care physician: Mary Woodard Consults: 04/03/17 12:29 Consult to Occupational Therapy [CONS] Routine Comment: Mario, Develop, and Implement P.O.C. Reason for Consult: Mario, Develop, and Implement P.O.C. - AE of CHF w/ morbid obesity Consult to Physical Therapy [CONS] Routine Comment: Eval, Develop, and Implement P.O.C. Reason for Consult: Mario, Develop, and Implement P.O.C. - AE of CHF w/ morbid obesity Consult to Tire Mold Tester [CONS] Routine Reason for SW Consult: D/C planning - Constitutional Vitals: Temp Pulse Resp BP Pulse Ox 98.2 F 89 16 126/77 93 04/17/17 06:34 04/17/17 06:34 04/17/17 09:32 04/17/17 06:34 04/17/17 09:32 - Patient Status Disposition: Home Health Service Functional capacity at discharge: uses cane/walker - Discharge Instructions Follow Up With: Valdo Morrow DO [Primary Care Provider] - 1 week - Diet and Activity Activity: as per physical therapy Diet: diabetic diet - VTE Documentation of Mechanical Device: Graduated compression elastic hosiery
--- NOTE | 2017-04-17 10:59 | Physician Discharge Referral ---
Home Health/Hosp Referral Info Transfer to: Home Health Attending Provider: Raymundo Provider in Charge Post Discharge: PCP (Valdo Morrow M.D.) - Diagnosis (1) Chronic atrial fibrillation Priority: Primary Status: Acute (2) Obstructive sleep apnea Priority: Secondary Status: Chronic (3) Diabetes mellitus type 2 in obese Priority: Secondary Status: Chronic (4) Acute exacerbation of congestive heart failure Priority: Secondary Status: Acute (5) Acute on chronic respiratory failure with hypoxia and hypercapnia Priority: Secondary Status: Acute (6) Hypothyroidism Priority: Secondary Status: Chronic (7) Anemia Priority: Secondary Status: Chronic (8) Hypotension Priority: Secondary Status: Resolved (9) Seborrhea Priority: Secondary Status: Acute - Respiratory Orders Smoking Cessation: Smoking cessation has been advised. For more information, call the [place] Tobacco Quit Line at 1-470-AFHY-NOW. - Diet/Nutrition Diet/Nutrition Orders: No Concentrated Sweets - Activity Activity Orders: Walker - Services Needed Following services are medically necessary services: Nursing, Home Health Aide, Physical Therapy, Occupational Therapy - Transfer Medications Prescriptions: Ascorbic Acid [Vitamin C] 500 mg PO 0630 #30 tablet Clotrimazole/Betamethasone Dip [Lotrisone Cream] 15 gm TP BID 5 Days #1 pkg Ferrous Sulfate 325 mg PO 0630 #30 tablet Home Medications: Levothyroxine [Synthroid] 50 mcg PO QAM 10/18/14 [History] Apixaban [Eliquis] 5 mg PO BID 02/26/15 [History] Ipratropium/Albuterol Neb [Duoneb] 3 ml IH Q4H PRN 02/26/15 [History] Insulin Lispro Protamin/Lispro [Humalog Mix 75-25 Kwikpen] 25 unit SQ BID [History] Duloxetine HCl [Cymbalta] 60 mg PO DAILY 10/07/16 [History] Metoprolol XL (24 HR) Succ [Toprol Xl] 50 mg PO DAILY 10/07/16 [History] Tamsulosin [Flomax] 0.4 mg PO DAILY 10/07/16 [History] Multivits,Ca,Min/Iron/FA/Lycop [Centrum Men's Tablet] 1 tab PO DAILY 10/17/16 [ History] OxyCODONE ER (12 HR) [OxyCONTIN] 80 mg PO Q12H 03/30/17 [History] Furosemide [Lasix] 80 mg PO BID #30 tablet 04/03/17 [Rx] Hydroxychloroquine [Plaquenuil] 400 mg PO QAM tablet 04/03/17 [Rx] Potassium Chloride 40 meq PO BID #30 tab.er.prt 04/03/17 [Rx] Ascorbic Acid [Vitamin C] 500 mg PO 0630 #30 tablet 04/17/17 [Rx] Clotrimazole/Betamethasone Dip [Lotrisone Cream] 15 gm TP BID 5 Days #1 pkg 10/27 [Rx] Ferrous Sulfate 325 mg PO 0630 #30 tablet 04/17/17 [Rx] Folic Acid 1 mg PO Q48H tablet 04/17/17 [Rx] Allergies/Adverse Reactions: 3 Allergy/AdvReac Type Severity Reaction Status Date / Time clindamycin AdvReac Diarrhea Verified 11/23/16 07:17 Certification: Further, I certify that my clinical findings support that this patient is homebound (i.e. absences from home require considerable and taxing effort and are for medical reasons or yarsani services or infrequently or short duration when for other reasons) because: Homebound Reason: Leaving home requires considerable and taxing effort due to condition (Markedly impaired ambulation secondary to COPD and heart failure) Attestation: My signature below is to certify that this patient is under my care and that I, or nurse practitioner, or a physician's rehabilitation assistant working with me, has a face-to -face encounter with this patient.
[2017-04-18] MEDS ORDERED: Folic Acid 1 MG TABLET PO SCH (09:00)
== END 2017-04-17 13:00 | disposition home health service (06) | DRG 291 ==
LOC: INPPIK 11:41
PROVIDERS: ADMIT Internal Medicine; ATTEND Internal Medicine

== ENCOUNTER 2018-07-28 15:31 | Inpatient (IN) ==
[2018-07-28] MEDS ORDERED: Hyoscyamine SL 0.125 MG TAB.SUBL SL PRN (16:23)
[2018-07-28] MEDS ORDERED: Clotrimazole/Betameth Dip CRM 45 APPL/45 GM TUBE TP PRN (16:23)
[2018-07-28] MEDS: Furosemide 40 MG TABLET PO SCH (18:12)
[2018-07-28] MEDS: Folic Acid 1 MG TABLET PO SCH (18:12)
[2018-07-28] MEDS: Insulin NPH/REG 70/30 100 UNIT/ML (x5UNIT) SQ SCH (21:29)
[2018-07-28] MEDS: Apixaban 5 MG TABLET PO SCH (21:29)
[2018-07-28] MEDS: Doxycycline 100 MG CAPSULE PO SCH (21:29)
[2018-07-28] MEDS: *HR* OxyCODONE ER (12 HR) 40 MG TABLET PO SCH (21:29)
[2018-07-28] MEDS: Colestipol Hcl [Colestid] 2 GM PO SCH (21:34)
[2018-07-28] MEDS: Ipratropium/Albuterol Neb 3 ML IH PRN (23:55)
[2018-07-29] MEDS: levoFLOXacin 250 MG TABLET PO SCH (09:07)
[2018-07-29] MEDS: Doxycycline 100 MG CAPSULE PO SCH ×2 (09:07→21:59)
[2018-07-29] MEDS: Apixaban 5 MG TABLET PO SCH ×2 (09:08→21:59)
[2018-07-29] MEDS: Ascorbic Acid 500 MG TABLET PO SCH (09:08)
[2018-07-29] MEDS: Multivit/Ca/Min/Fe/FA 1 TAB TABLET PO SCH (09:08)
[2018-07-29] MEDS: *HR* OxyCODONE ER (12 HR) 40 MG TABLET PO SCH ×2 (09:08→21:59)
[2018-07-29] MEDS: predniSONE 20 MG TABLET PO SCH (09:08)
[2018-07-29] MEDS: Furosemide 40 MG TABLET PO SCH ×2 (09:08→16:11)
[2018-07-29] MEDS: Metoprolol XL (24 HR) Succ 50 MG TAB.ER.24H PO SCH (09:09)
[2018-07-29] MEDS: Vilazodone Hcl [Viibryd] 40 MG PO SCH (09:17)
[2018-07-29] MEDS: Insulin NPH/REG 70/30 100 UNIT/ML (x5UNIT) SQ SCH ×2 (09:19→21:59)
[2018-07-29] MEDS: Colestipol Hcl [Colestid] 2 GM PO SCH ×2 (09:19→21:59)
--- NOTE | 2018-07-29 11:54 | Internal Med History&Physical ---
Date of Encounter: 07/29/18 Time of Encounter: 11:20 Assessment and Plan (1) Pneumonia Current visit: No Status: Acute Continue doxycycline and Levaquin with prednisone through August 03. Lactobacillus will be given. Qualifiers: Pneumonia type: due to unspecified organism Laterality: left Lung location: lower lobe of lung Qualified Code(s): J18.1 - Lobar pneumonia, unspecified organism (2) Chronic atrial fibrillation Current visit: No Status: Acute Continue Eliquis (3) Diabetes mellitus type 2 in obese Current visit: No Status: Chronic Hemoglobin A1c was 6.1% on 06/18/2018. Continue Humalog 70/30 insulin and Accu- Cheks with SSI (4) Anemia Current visit: No Status: Chronic Anemia testing will be done in a.m. Qualifiers: Anemia type: unspecified type Qualified Code(s): D64.9 - Anemia, unspecified (5) Congestive heart failure Current visit: No Status: Chronic Continue Lasix and Toprol Qualifiers: Heart failure type: diastolic Heart failure chronicity: acute on chronic Qualified Code(s): I50.33 - Acute on chronic diastolic (congestive) heart failure Internal Medicine - H&P: HPI Chief complaint: Pneumonia, heart failure Admitted From: Hospital to Hospital Transfer Plans for Post Hospital Care: Home History of present illness: Mr. Belcher is a 68 year old male who was transferred to [facility] swing bed July 28 following a July 1117 stay at [facility] where he received treatment for acute on chronic heart failure, COPD exacerbation, and pneumonia. He was discharged on ongoing antibiotics to be completed August 03. He is also receiving oral steroids. His cardiovascular history is significant for hypertension. He has had chronic atrial fibrillation for approximately 2 years. He has been diagnosed with heart failure. Limited echocardiogram 07/25/2018 showed LVEF of 50%. Interventricu lar septum and posterior wall thickness measurements were elevated at 1.21 and 1.40 cm respectively. There was significant LAE at 5.30 cm. The left ventricular end-diastolic diameter was 5.26 cm. He denies ND DVT or pulmonary embolus. Reports a heart catheter done approximately 2002 without intervention. His respiratory history is significant for having smoked from age [age] up to 1 pack per day. He has a diagnosis of COPD and wears oxygen at home 01/09. He has NOAH and wears BiPAP at at bedtime and when necessary during day time. Past Med Surg Social Fam HX - Past Medical History Medical history: atrial fibrillation, COPD, diabetes, hypertension, RA, thyroid disease Additional medical history: Lymphedema Psychiatric history: depression - Past Surgical History Surgical History: orthopedic, other Additional surgical history: LEFT 5TH TOE REMOVED - Social History Smoking Status: Former smoker Smokeless Tobacco Status: No Alcohol use: none Drug use: none - Family History Mother Living Status: Hx Family Cardiac Disorders: Yes Hx Family Endocrine Disorder: Yes (DM) Father Living Status: Hx Family Cardiac Disorders: Yes Internal Medicine - H&P: Meds Apixaban [Eliquis] 5 mg PO BID 02/26/15 [History] Ipratropium/Albuterol Neb [Duoneb] 3 ml IH Q4H PRN 02/26/15 [History] Insulin Lispro Protamin/Lispro [Humalog Mix 75-25 Kwikpen] 25 unit SQ BID 03/04/15 [History] Metoprolol XL (24 HR) Succ [Toprol Xl] 50 mg PO DAILY 10/07/16 [History] Tamsulosin [Flomax] 0.4 mg PO DAILY 10/07/16 [History] Multivits,Ca,Min/Iron/FA/Lycop [Centrum Men's Tablet] 1 tab PO DAILY 10/17/16 [History] OxyCODONE ER (12 HR) [OxyCONTIN] 80 mg PO Q12H 03/30/17 [History] Furosemide [Lasix] 80 mg PO BID #30 tablet 04/03/17 [Rx] Potassium Chloride 40 meq PO BID #30 tab.er.prt 04/03/17 [Rx] Folic Acid 1 mg PO Q48H tablet 04/17/17 [Rx] Clotrimazole/Betamethasone Dip [Lotrisone Cream] 15 gm TP BID PRN 06/18/18 [History] Colestipol HCl [Colestid] 2 gm PO BID 06/18/18 [History] Ferrous Sulfate 650 mg PO QAM 06/18/18 [History] Hyoscyamine SL [Levsin Sl] 0.125 mg SL Q4HR PRN 06/18/18 [History] Levothyroxine Sodium 100 mcg PO 0630 06/18/18 [History] Vilazodone HCl [Viibryd] 40 mg PO DAILY 06/18/18 [History] Ascorbic Acid [Vitamin C] 500 mg PO QAM 07/20/18 [History] Doxycycline 100 mg PO BID #14 capsule 07/27/18 [Rx] levoFLOXacin [Levaquin] 750 mg PO DAILY #7 tablet 07/27/18 [Rx] predniSONE [PredniSONE] 20 mg PO DAILY #10 tablet 07/27/18 [Rx] Allergy/AdvReac Type Severity Reaction Status Date / Time clindamycin AdvReac Diarrhea Verified 11/23/16 07:17 All Systems PM: A 10-system review of systems was performed and is negative for pertinent findings except as documented above in the HPI. Review of systems: Review of systems from his March 2017 [facility] hospitalization were reviewed and revised as below. Gen.: He states his weight has decreased from 556 pounds in 2016 to present weight of approximately 440 pounds. Cardiovascular: As per history of present illness Respiratory: As per history of present illness GI: He denies disorders of his liver gallbladder or exocrine pancreas : He denies hematuria or dysuria or kidney stones Neurologic: He denies large distribution strokes or seizures. Endocrine: He was diagnosed with DM 2 approximately age 47. He has hypothyroidism but denies hyperlipidemia Hematology/oncology: He has anemia on most labs since 2015. He was unaware of this. He denies internal malignancies. Psychiatric: He has history of depression. 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 He reports he sustained injury January 2015 while at [facility] resulting in significant loss of control of right wrist and hand. - Constitutional Vitals: Temp Pulse Resp BP Pulse Ox 98.3 F 92 18 104/70 98 07/29/18 07:00 07/29/18 07:00 07/29/18 07:00 07/29/18 07:00 07/29/18 07:00 Exam: Gen.: He is a well-developed obese male lying in bed who appears in no acute distress HEENT: Head is atraumatic and normocephalic. Eyes: EOMI. There is no scleral icterus. Mouth: Mucosa is moist. Neck: He has a large neck. There is no tenderness to palpation. Heart: Irregularly irregular without murmurs or gallops. Lungs: No wheezes or crackles are heard. Abdomen: He has a massive abdomen. There is asymmetric enlargement of the left abdominal area with induration and slight more erythema compared to the right side. No masses or guarding are noted. Extremities: He has 2-3+ pitting edema of the dorsum of the feet and lower legs bilaterally. Dorsalis pedis and posterior tibial pulses are not palpated. He has chronic venous stasis pigmentation changes. He has atrophy of the intrinsic hand muscles on the right hand. Neurologic: Mental status: He is talkative and a good historian. Cranial nerves: Smile is symmetric. Forehead wrinkles's bilaterally. Tongue protrudes midline. EOMI. Motor: He cannot pronate the right arm well. He has near flaccid right hand at the wrist with limited finger movements. The left hand moves normally. Cerebellar: Finger to nose is intact bilaterally. Skin: Warm and dry
[2018-07-30 09:02] LABS: Transferrin 209 mg/dL (203-362)
[2018-07-30 09:19] LABS: Ferritin 66 ng/mL (20-250)
[2018-07-30 09:20] LABS: % Iron Saturation 20 % (20-55); Iron 58 mcg/dL (65-175)
[2018-07-30 09:26] LABS: Folate 19.1 ng/mL (3.0-16.0)
[2018-07-30] MEDS: Furosemide 40 MG TABLET PO SCH ×2 (10:57→16:37)
[2018-07-30] MEDS: Doxycycline 100 MG CAPSULE PO SCH ×2 (10:57→22:24)
[2018-07-30] MEDS: *HR* OxyCODONE ER (12 HR) 40 MG TABLET PO SCH ×2 (10:57→22:24)
[2018-07-30] MEDS: Apixaban 5 MG TABLET PO SCH ×2 (10:58→22:24)
[2018-07-30] MEDS: Multivit/Ca/Min/Fe/FA 1 TAB TABLET PO SCH (10:58)
[2018-07-30] MEDS: Ascorbic Acid 500 MG TABLET PO SCH (10:58)
[2018-07-30] MEDS: Metoprolol XL (24 HR) Succ 50 MG TAB.ER.24H PO SCH (10:59)
[2018-07-30] MEDS: levoFLOXacin 250 MG TABLET PO SCH (10:59)
[2018-07-30] MEDS: Colestipol Hcl [Colestid] 2 GM PO SCH ×2 (11:00→22:33)
[2018-07-30] MEDS: Insulin NPH/REG 70/30 100 UNIT/ML (x5UNIT) SQ SCH ×2 (11:01→22:31)
[2018-07-30] MEDS: predniSONE 20 MG TABLET PO SCH (11:07)
[2018-07-30] MEDS: Vilazodone Hcl [Viibryd] 40 MG PO SCH (11:07)
--- NOTE | 2018-07-30 12:27 | Internal Med Progress Note ---
Date of Encounter: 07/30/18 Time of Encounter: 12:15 - Assessment and plan (1) Pneumonia Current Visit: No Status: Acute Assessment and plan: July 30. Continue doxycycline, Levaquin, prednisone, and lactobacillus through August 03. Qualifiers: Pneumonia type: due to unspecified organism Laterality: left Lung location: lower lobe of lung Qualified Code(s): J18.1 - Lobar pneumonia, unspecified organism (2) Chronic atrial fibrillation Current Visit: No Status: Acute Assessment and plan: July 30. Continue Eliquis (3) Diabetes mellitus type 2 in obese Current Visit: No Status: Chronic Assessment and plan: July 30. Hemoglobin A1c was 6.1% on 06/18/2018. Continue Humalog 70/30 insulin and Accu-Cheks with SSI. (4) Anemia Current Visit: No Status: Chronic Assessment and plan: July 30. Anemia testing showed iron 58, transferrin saturation 20%, transferrin 209, ferritin 66, B12 300, and folate 19.1. Qualifiers: Anemia type: unspecified type Qualified Code(s): D64.9 - Anemia, unspecified (5) Congestive heart failure Current Visit: No Status: Chronic Assessment and plan: July 30. BN peptide was 139 on 07/23/2018. Continue Lasix and Toprol Qualifiers: Heart failure type: diastolic Heart failure chronicity: acute on chronic Qualified Code(s): I50.33 - Acute on chronic diastolic (congestive) heart failure - Subjective Interval history: July 30. He has no new complaints. - Constitutional Vitals: Temp Pulse Resp BP Pulse Ox 97.6 F 87 17 118/75 98 07/30/18 07:13 07/30/18 07:13 07/30/18 07:13 07/30/18 07:13 07/30/18 07:13 Exam: He is resting comfortably in bed eating lunch. His affect is overall cheerful. I reviewed his medications and lab results. Consult Discharge Plan - Plan Referrals: Valdo Morrow DO [Primary Care Provider] - 1 week
[2018-07-30] MEDS: Folic Acid 1 MG TABLET PO SCH (16:37)
[2018-07-31] MEDS: Doxycycline 100 MG CAPSULE PO SCH ×2 (07:51→21:55)
[2018-07-31] MEDS: Apixaban 5 MG TABLET PO SCH ×2 (07:51→21:55)
[2018-07-31] MEDS: Metoprolol XL (24 HR) Succ 50 MG TAB.ER.24H PO SCH (07:51)
[2018-07-31] MEDS: Multivit/Ca/Min/Fe/FA 1 TAB TABLET PO SCH (07:51)
[2018-07-31] MEDS: Ascorbic Acid 500 MG TABLET PO SCH (07:51)
[2018-07-31] MEDS: predniSONE 20 MG TABLET PO SCH (07:52)
[2018-07-31] MEDS: levoFLOXacin 250 MG TABLET PO SCH (07:52)
[2018-07-31] MEDS: Colestipol Hcl [Colestid] 2 GM PO SCH ×2 (07:52→21:59)
[2018-07-31] MEDS: *HR* OxyCODONE ER (12 HR) 40 MG TABLET PO SCH ×2 (07:52→21:57)
[2018-07-31] MEDS: Furosemide 40 MG TABLET PO SCH ×2 (07:52→17:42)
[2018-07-31] MEDS: Vilazodone Hcl [Viibryd] 40 MG PO SCH (07:57)
[2018-07-31] MEDS: Insulin NPH/REG 70/30 100 UNIT/ML (x5UNIT) SQ SCH ×3 (09:38→22:04)
[2018-08-01] MEDS: levoFLOXacin 250 MG TABLET PO SCH (09:27)
[2018-08-01] MEDS: Doxycycline 100 MG CAPSULE PO SCH ×2 (09:27→21:14)
[2018-08-01] MEDS: predniSONE 20 MG TABLET PO SCH (09:27)
[2018-08-01] MEDS: Multivit/Ca/Min/Fe/FA 1 TAB TABLET PO SCH (09:27)
[2018-08-01] MEDS: Metoprolol XL (24 HR) Succ 50 MG TAB.ER.24H PO SCH (09:28)
[2018-08-01] MEDS: *HR* OxyCODONE ER (12 HR) 40 MG TABLET PO SCH ×2 (09:28→21:14)
[2018-08-01] MEDS: Furosemide 40 MG TABLET PO SCH ×2 (09:28→16:42)
[2018-08-01] MEDS: Apixaban 5 MG TABLET PO SCH ×2 (09:28→21:14)
[2018-08-01] MEDS: Insulin NPH/REG 70/30 100 UNIT/ML (x5UNIT) SQ SCH ×2 (09:29→21:14)
[2018-08-01] MEDS: Colestipol Hcl [Colestid] 2 GM PO SCH ×2 (09:29→21:11)
[2018-08-01] MEDS: Ascorbic Acid 500 MG TABLET PO SCH (09:32)
[2018-08-01] MEDS: Vilazodone Hcl [Viibryd] 40 MG PO SCH (09:32)
--- NOTE | 2018-08-01 12:47 | Internal Med Progress Note ---
Date of Encounter: 08/01/18 Time of Encounter: 12:40 - Assessment and plan (1) Pneumonia Current Visit: No Status: Acute Assessment and plan: July 30. Continue doxycycline, Levaquin, prednisone, and lactobacillus through August 03. Qualifiers: Pneumonia type: due to unspecified organism Laterality: left Lung location: lower lobe of lung Qualified Code(s): J18.1 - Lobar pneumonia, unspecified organism (2) Chronic atrial fibrillation Current Visit: No Status: Acute Assessment and plan: July 30. Continue Eliquis (3) Diabetes mellitus type 2 in obese Current Visit: No Status: Chronic Assessment and plan: July 30. Hemoglobin A1c was 6.1% on 06/18/2018. Continue Humalog 70/30 insulin and Accu-Cheks with SSI. August 01. Accu-Cheks acceptable. Continue present Rx. (4) Anemia Current Visit: No Status: Chronic Assessment and plan: July 30. Anemia testing showed iron 58, transferrin saturation 20%, transferrin 209, ferritin 66, B12 300, and folate 19.1. Qualifiers: Anemia type: unspecified type Qualified Code(s): D64.9 - Anemia, unspecified (5) Congestive heart failure Current Visit: No Status: Chronic Assessment and plan: July 30. BN peptide was 139 on 07/23/2018. Continue Lasix and Toprol Qualifiers: Heart failure type: diastolic Heart failure chronicity: acute on chronic Qualified Code(s): I50.33 - Acute on chronic diastolic (congestive) heart failure - Subjective Interval history: July 30. He has no new complaints. August 01. He has no new complaints and feels better. - Constitutional Vitals: Temp Pulse Resp BP Pulse Ox 98.3 F 81 17 109/62 97 08/01/18 07:47 08/01/18 07:47 08/01/18 07:47 08/01/18 07:47 08/01/18 07:47 Exam: He is resting comfortably in bed and appears in no acute distress. His affect is overall cheerful. I reviewed his medications and lab results. Consult Discharge Plan - Plan Referrals: Valdo Morrow DO [Primary Care Provider] - 1 week
[2018-08-01] MEDS: Folic Acid 1 MG TABLET PO SCH (16:42)
[2018-08-02] MEDS: Insulin NPH/REG 70/30 100 UNIT/ML (x5UNIT) SQ SCH ×2 (08:58→20:34)
[2018-08-02] MEDS: Multivit/Ca/Min/Fe/FA 1 TAB TABLET PO SCH (08:59)
[2018-08-02] MEDS: Furosemide 40 MG TABLET PO SCH ×2 (08:59→16:31)
[2018-08-02] MEDS: Ascorbic Acid 500 MG TABLET PO SCH (08:59)
[2018-08-02] MEDS: Apixaban 5 MG TABLET PO SCH ×2 (08:59→20:34)
[2018-08-02] MEDS: predniSONE 20 MG TABLET PO SCH (08:59)
[2018-08-02] MEDS: *HR* OxyCODONE ER (12 HR) 40 MG TABLET PO SCH ×2 (08:59→20:34)
[2018-08-02] MEDS: Metoprolol XL (24 HR) Succ 50 MG TAB.ER.24H PO SCH (08:59)
[2018-08-02] MEDS: Doxycycline 100 MG CAPSULE PO SCH ×2 (08:59→20:34)
[2018-08-02] MEDS: Colestipol Hcl [Colestid] 2 GM PO SCH ×2 (09:00→21:01)
[2018-08-02] MEDS: Vilazodone Hcl [Viibryd] 40 MG PO SCH (09:00)
[2018-08-02] MEDS: levoFLOXacin 250 MG TABLET PO SCH (09:00)
[2018-08-03] MEDS: levoFLOXacin 250 MG TABLET PO SCH (09:27)
[2018-08-03] MEDS: Furosemide 40 MG TABLET PO SCH ×2 (09:28→17:24)
[2018-08-03] MEDS: Ascorbic Acid 500 MG TABLET PO SCH (09:29)
[2018-08-03] MEDS: Multivit/Ca/Min/Fe/FA 1 TAB TABLET PO SCH (09:29)
[2018-08-03] MEDS: Doxycycline 100 MG CAPSULE PO SCH ×2 (09:30→20:06)
[2018-08-03] MEDS: Apixaban 5 MG TABLET PO SCH ×2 (09:30→20:06)
[2018-08-03] MEDS: Insulin NPH/REG 70/30 100 UNIT/ML (x5UNIT) SQ SCH ×2 (09:30→20:06)
[2018-08-03] MEDS: *HR* OxyCODONE ER (12 HR) 40 MG TABLET PO SCH ×2 (09:30→20:06)
[2018-08-03] MEDS: predniSONE 20 MG TABLET PO SCH (09:30)
[2018-08-03] MEDS: Colestipol Hcl [Colestid] 2 GM PO SCH ×2 (09:31→20:07)
[2018-08-03] MEDS: Vilazodone Hcl [Viibryd] 40 MG PO SCH (09:31)
[2018-08-03] MEDS ORDERED: Artificial Tears SOLN 15 ML BOTTLE BOTH EYES PRN (10:22)
[2018-08-03] MEDS: Metoprolol XL (24 HR) Succ 50 MG TAB.ER.24H PO SCH (10:25)
[2018-08-03] MEDS: Folic Acid 1 MG TABLET PO SCH (17:24)
[2018-08-04] MEDS: Doxycycline 100 MG CAPSULE PO SCH (08:58)
[2018-08-04] MEDS: Metoprolol XL (24 HR) Succ 50 MG TAB.ER.24H PO SCH (08:58)
[2018-08-04] MEDS: *HR* OxyCODONE ER (12 HR) 40 MG TABLET PO SCH ×2 (08:58→19:45)
[2018-08-04] MEDS: levoFLOXacin 250 MG TABLET PO SCH (08:59)
[2018-08-04] MEDS: Furosemide 40 MG TABLET PO SCH ×2 (09:02→16:29)
[2018-08-04] MEDS: predniSONE 20 MG TABLET PO SCH (09:02)
[2018-08-04] MEDS: Apixaban 5 MG TABLET PO SCH ×2 (09:02→19:46)
[2018-08-04] MEDS: Multivit/Ca/Min/Fe/FA 1 TAB TABLET PO SCH (09:02)
[2018-08-04] MEDS: Ascorbic Acid 500 MG TABLET PO SCH (09:02)
[2018-08-04] MEDS: Insulin NPH/REG 70/30 100 UNIT/ML (x5UNIT) SQ SCH ×2 (09:03→19:46)
[2018-08-04] MEDS: Colestipol Hcl [Colestid] 2 GM PO SCH ×2 (09:04→19:46)
[2018-08-04] MEDS: Vilazodone Hcl [Viibryd] 40 MG PO SCH (09:04)
[2018-08-04] MEDS: Acetaminophen 325 MG TABLET PO PRN (11:21)
[2018-08-05] MEDS: Furosemide 40 MG TABLET PO SCH ×2 (09:36→17:18)
[2018-08-05] MEDS: predniSONE 20 MG TABLET PO SCH (09:37)
[2018-08-05] MEDS: *HR* OxyCODONE ER (12 HR) 40 MG TABLET PO SCH ×2 (09:37→22:06)
[2018-08-05] MEDS: Ascorbic Acid 500 MG TABLET PO SCH (09:37)
[2018-08-05] MEDS: Multivit/Ca/Min/Fe/FA 1 TAB TABLET PO SCH (09:38)
[2018-08-05] MEDS: Metoprolol XL (24 HR) Succ 50 MG TAB.ER.24H PO SCH (09:38)
[2018-08-05] MEDS: Vilazodone Hcl [Viibryd] 40 MG PO SCH (09:39)
[2018-08-05] MEDS: Colestipol Hcl [Colestid] 2 GM PO SCH ×2 (09:39→22:06)
[2018-08-05] MEDS: Apixaban 5 MG TABLET PO SCH ×2 (09:40→22:06)
[2018-08-05] MEDS: Insulin NPH/REG 70/30 100 UNIT/ML (x5UNIT) SQ SCH ×2 (09:46→22:06)
--- NOTE | 2018-08-05 15:23 | Internal Med Progress Note ---
Date of Encounter: 08/05/18 Time of Encounter: 15:15 - Assessment and plan (1) Pneumonia Current Visit: No Status: Acute Assessment and plan: July 30. Continue doxycycline, Levaquin, prednisone, and lactobacillus through August 03. August 05. Recheck labs in a.m. Qualifiers: Pneumonia type: due to unspecified organism Laterality: left Lung location: lower lobe of lung Qualified Code(s): J18.1 - Lobar pneumonia, unspecified organism (2) Chronic atrial fibrillation Current Visit: No Status: Acute Assessment and plan: July 30. Continue Eliquis (3) Diabetes mellitus type 2 in obese Current Visit: No Status: Chronic Assessment and plan: July 30. Hemoglobin A1c was 6.1% on 06/18/2018. Continue Humalog 70/30 insulin and Accu-Cheks with SSI. August 01. Accu-Cheks acceptable. Continue present Rx. (4) Anemia Current Visit: No Status: Chronic Assessment and plan: July 30. Anemia testing showed iron 58, transferrin saturation 20%, transferrin 209, ferritin 66, B12 300, and folate 19.1. Qualifiers: Anemia type: unspecified type Qualified Code(s): D64.9 - Anemia, unspecified (5) Congestive heart failure Current Visit: No Status: Chronic Assessment and plan: July 30. BN peptide was 139 on 07/23/2018. Continue Lasix and Toprol Qualifiers: Heart failure type: diastolic Heart failure chronicity: acute on chronic Qualified Code(s): I50.33 - Acute on chronic diastolic (congestive) heart failure - Subjective Interval history: July 30. He has no new complaints. August 01. He has no new complaints and feels better. August 05. He has no new complaints and feels stronger. - Constitutional Vitals: Temp Pulse Resp BP Pulse Ox 98.1 F 74 18 109/73 97 08/05/18 08:01 08/05/18 08:01 08/05/18 08:01 08/05/18 08:01 08/05/18 08:01 Exam: He is sitting on the side of bed resting comfortably. His affect is bright and cheerful. I reviewed his medications and past lab results. Consult Discharge Plan - Plan Referrals: Valdo Mrorow DO [Primary Care Provider] - 1 week
[2018-08-05] MEDS: Folic Acid 1 MG TABLET PO SCH (17:18)
[2018-08-06] MEDS: Ipratropium/Albuterol Neb 3 ML IH PRN (00:51)
[2018-08-06 06:19] LABS: Basophils # 0.1 K/mcL (0.0-0.2); Basophils % 0.6 %; Eosinophils # 0.1 K/mcL (0.0-0.6); Hematocrit 37.6 % (37.5-50.1); Hemoglobin 11.6 g/dL (12.9-16.9); Immature Granulocytes % 0.6 % (0-4); Lymphocytes # 2.9 K/mcL (0.6-4.6); Lymphocytes % 20.3 %; Mean Corpuscular HGB Conc 30.9 g/dL (31.6-35.5); Mean Corpuscular Hemoglobin 25.3 pg (28.0-33.3); Mean Corpuscular Volume 81.9 fL (83.0-100.0); Mean Platelet Volume 9.9 fL (9.4-12.4); Monocytes # 0.9 K/mcL (0.0-1.3); Monocytes % 6.3 %; Platelet Count 175 K/mcL (140-400); Red Blood Count 4.59 M/mcL (4.19-5.50); Red Cell Distribution Width 17.1 % (11.5-14.5); Segmented Neutrophils % 71.2 %; White Blood Count 14.1 K/mcL (4.3-11.1)
[2018-08-06 06:52] LABS: BUN/Creatinine Ratio 24 (6-26); Blood Urea Nitrogen 25 mg/dL (8-23); Calcium 8.2 mg/dL (8.6-10.3); Carbon Dioxide 37 mEq/L (23-29); Chloride 96 mEq/L (98-107); Glucose 142 mg/dL (70-105); Osmolality,Calculated 291 (280-300); Potassium 3.2 mEq/L (3.5-5.1); Sodium 137 mEq/L (136-145); eGFR For African Americans > 60 (> 60); eGFR For Non-African Americans > 60 (> 60)
[2018-08-06] MEDS: Furosemide 40 MG TABLET PO SCH ×2 (08:00→16:30)
[2018-08-06] MEDS: Multivit/Ca/Min/Fe/FA 1 TAB TABLET PO SCH (08:00)
[2018-08-06] MEDS: predniSONE 20 MG TABLET PO SCH (08:00)
[2018-08-06] MEDS: *HR* OxyCODONE ER (12 HR) 40 MG TABLET PO SCH ×2 (08:00→21:25)
[2018-08-06] MEDS: Apixaban 5 MG TABLET PO SCH ×2 (08:00→21:25)
[2018-08-06] MEDS: Ascorbic Acid 500 MG TABLET PO SCH (08:00)
[2018-08-06] MEDS: Metoprolol XL (24 HR) Succ 50 MG TAB.ER.24H PO SCH (08:00)
[2018-08-06] MEDS: Insulin NPH/REG 70/30 100 UNIT/ML (x5UNIT) SQ SCH ×2 (09:52→21:25)
[2018-08-06] MEDS: Colestipol Hcl [Colestid] 2 GM PO SCH ×2 (09:55→21:26)
[2018-08-06] MEDS: Vilazodone Hcl [Viibryd] 40 MG PO SCH (09:58)
[2018-08-06] MEDS: Acetaminophen 325 MG TABLET PO PRN (10:57)
[2018-08-07] MEDS: Ipratropium/Albuterol Neb 3 ML IH PRN ×2 (01:58→11:26)
[2018-08-07] MEDS: predniSONE 20 MG TABLET PO SCH (10:13)
[2018-08-07] MEDS: Acetaminophen 325 MG TABLET PO PRN (10:13)
[2018-08-07] MEDS: *HR* OxyCODONE ER (12 HR) 40 MG TABLET PO SCH ×2 (10:13→20:53)
[2018-08-07] MEDS: Metoprolol XL (24 HR) Succ 50 MG TAB.ER.24H PO SCH (10:13)
[2018-08-07] MEDS: Multivit/Ca/Min/Fe/FA 1 TAB TABLET PO SCH (10:13)
[2018-08-07] MEDS: Ascorbic Acid 500 MG TABLET PO SCH (10:13)
[2018-08-07] MEDS: Colestipol Hcl [Colestid] 2 GM PO SCH ×2 (10:14→20:47)
[2018-08-07] MEDS: Apixaban 5 MG TABLET PO SCH ×2 (10:14→20:53)
[2018-08-07] MEDS: Furosemide 40 MG TABLET PO SCH ×2 (10:14→15:59)
[2018-08-07] MEDS: Vilazodone Hcl [Viibryd] 40 MG PO SCH (10:15)
[2018-08-07] MEDS: Insulin NPH/REG 70/30 100 UNIT/ML (x5UNIT) SQ SCH ×2 (11:12→20:53)
[2018-08-07] MEDS: Folic Acid 1 MG TABLET PO SCH (15:59)
[2018-08-08] MEDS: Acetaminophen 325 MG TABLET PO PRN (06:13)
[2018-08-08] MEDS: Colestipol Hcl [Colestid] 2 GM PO SCH ×2 (07:57→20:30)
[2018-08-08] MEDS: Apixaban 5 MG TABLET PO SCH ×2 (07:59→20:30)
[2018-08-08] MEDS: Furosemide 40 MG TABLET PO SCH ×2 (07:59→17:07)
[2018-08-08] MEDS: Metoprolol XL (24 HR) Succ 50 MG TAB.ER.24H PO SCH (07:59)
[2018-08-08] MEDS: *HR* OxyCODONE ER (12 HR) 40 MG TABLET PO SCH (07:59)
[2018-08-08] MEDS: Multivit/Ca/Min/Fe/FA 1 TAB TABLET PO SCH (07:59)
[2018-08-08] MEDS: Ascorbic Acid 500 MG TABLET PO SCH (07:59)
[2018-08-08] MEDS: Vilazodone Hcl [Viibryd] 40 MG PO SCH (08:00)
[2018-08-08] MEDS: Insulin NPH/REG 70/30 100 UNIT/ML (x5UNIT) SQ SCH ×2 (10:04→20:30)
[2018-08-08] MEDS: *HR* OxyCODONE ER (12 HR) 10 MG TABLET PO SCH (20:29)
[2018-08-09] MEDS: Acetaminophen 325 MG TABLET PO PRN ×2 (06:56→14:49)
[2018-08-09] MEDS: *HR* OxyCODONE ER (12 HR) 10 MG TABLET PO SCH ×2 (08:56→20:11)
[2018-08-09] MEDS: Apixaban 5 MG TABLET PO SCH ×2 (08:56→20:12)
[2018-08-09] MEDS: Metoprolol XL (24 HR) Succ 50 MG TAB.ER.24H PO SCH (08:57)
[2018-08-09] MEDS: Insulin NPH/REG 70/30 100 UNIT/ML (x5UNIT) SQ SCH ×2 (08:57→20:12)
[2018-08-09] MEDS: Multivit/Ca/Min/Fe/FA 1 TAB TABLET PO SCH (08:57)
[2018-08-09] MEDS: Colestipol Hcl [Colestid] 2 GM PO SCH ×2 (08:57→20:12)
[2018-08-09] MEDS: Vilazodone Hcl [Viibryd] 40 MG PO SCH (08:57)
[2018-08-09] MEDS: Ascorbic Acid 500 MG TABLET PO SCH (08:57)
[2018-08-09] MEDS: Furosemide 40 MG TABLET PO SCH ×2 (08:57→17:23)
[2018-08-09] MEDS: Folic Acid 1 MG TABLET PO SCH (14:49)
--- NOTE | 2018-08-09 16:48 | Internal Med Progress Note ---
Date of Encounter: 08/09/18 Time of Encounter: 16:40 - Assessment and plan (1) Pneumonia Current Visit: No Status: Acute Assessment and plan: July 30. Continue doxycycline, Levaquin, prednisone, and lactobacillus through August 03. August 05. Recheck labs in a.m. August 09. WBC decreased to 14.1 on August 06. Recheck in a.m. Qualifiers: Pneumonia type: due to unspecified organism Laterality: left Lung location: lower lobe of lung Qualified Code(s): J18.1 - Lobar pneumonia, unspecified organism (2) Chronic atrial fibrillation Current Visit: No Status: Acute Assessment and plan: July 30. Continue Eliquis (3) Diabetes mellitus type 2 in obese Current Visit: No Status: Chronic Assessment and plan: July 30. Hemoglobin A1c was 6.1% on 06/18/2018. Continue Humalog 70/30 insulin and Accu-Cheks with SSI. August 01. Accu-Cheks acceptable. Continue present Rx. (4) Anemia Current Visit: No Status: Chronic Assessment and plan: July 30. Anemia testing showed iron 58, transferrin saturation 20%, transferrin 209, ferritin 66, B12 300, and folate 19.1. Qualifiers: Anemia type: unspecified type Qualified Code(s): D64.9 - Anemia, unspecified (5) Congestive heart failure Current Visit: No Status: Chronic Assessment and plan: July 30. BN peptide was 139 on 07/23/2018. Continue Lasix and Toprol Qualifiers: Heart failure type: diastolic Heart failure chronicity: acute on chronic Qualified Code(s): I50.33 - Acute on chronic diastolic (congestive) heart failure (6) Hypokalemia Current Visit: No Status: Acute Assessment and plan: August 09. Potassium level was 3.2 on 08/06/2018. Continue supplemental potassium and recheck in a.m. (7) Rheumatoid arthritis Current Visit: No Status: Chronic Assessment and plan: August 09. Start prednisone 20 mg daily and taper as tolerated. Qualifiers: Rheumatoid arthritis location: unspecified site Rheumatoid factor presence: unspecified presence Qualified Code(s): M06.9 - Rheumatoid arthritis, unspecified - Subjective Interval history: July 30. He has no new complaints. August 01. He has no new complaints and feels better. August 05. He has no new complaints and feels stronger. August 09. He states since prednisone taper (pneumonia treatment) has ended he has had worsening pain from rheumatoid arthritis. Reports his PCP occasionally used steroid bursts to treat previous similar episodes. - Constitutional Vitals: Temp Pulse Resp BP Pulse Ox 98.4 F 103 18 120/68 97 08/09/18 08:03 08/09/18 08:03 08/09/18 08:03 08/09/18 08:03 08/09/18 08:03 Exam: He is resting comfortably in bed and appears in no acute distress. His affect is overall cheerful. I reviewed his medications and lab results. Internal Medicine: Result - Labs CBC & Chem 7: 08/06/18 05:38 08/06/18 05:38 Consult Discharge Plan - Plan Referrals: Valdo Morrow DO [Primary Care Provider] - 1 week
[2018-08-09] MEDS: predniSONE 20 MG TABLET PO SCH (17:24)
[2018-08-10 07:43] LABS: Basophils # 0.1 K/mcL (0.0-0.2); Basophils % 0.5 %; Eosinophils # 0.1 K/mcL (0.0-0.6); Eosinophils % 1.2 %; Hematocrit 37.8 % (37.5-50.1); Hemoglobin 11.4 g/dL (12.9-16.9); Immature Granulocytes % 0.5 % (0-4); Lymphocytes # 1.8 K/mcL (0.6-4.6); Lymphocytes % 16.1 %; Mean Corpuscular HGB Conc 30.2 g/dL (31.6-35.5); Mean Corpuscular Hemoglobin 25.2 pg (28.0-33.3); Mean Corpuscular Volume 83.4 fL (83.0-100.0); Mean Platelet Volume 9.6 fL (9.4-12.4); Monocytes # 0.5 K/mcL (0.0-1.3); Monocytes % 4.9 %; Neutrophils # 8.4 K/mcL (1.6-8.9); Platelet Count 136 K/mcL (140-400); Red Blood Count 4.53 M/mcL (4.19-5.50); Red Cell Distribution Width 17.4 % (11.5-14.5); Segmented Neutrophils % 76.8 %; White Blood Count 10.9 K/mcL (4.3-11.1)
[2018-08-10 08:04] LABS: BUN/Creatinine Ratio 22 (6-26); Blood Urea Nitrogen 21 mg/dL (8-23); Calcium 8.6 mg/dL (8.6-10.3); Carbon Dioxide 40 mEq/L (23-29); Chloride 98 mEq/L (98-107); Glucose 171 mg/dL (70-105); Magnesium 2.1 mg/dL (1.6-2.6); Osmolality,Calculated 303 (280-300); Potassium 3.3 mEq/L (3.5-5.1); Sodium 143 mEq/L (136-145); eGFR For African Americans > 60 (> 60); eGFR For Non-African Americans > 60 (> 60)
[2018-08-10] MEDS: Metoprolol XL (24 HR) Succ 50 MG TAB.ER.24H PO SCH (09:29)
[2018-08-10] MEDS: Apixaban 5 MG TABLET PO SCH ×2 (09:30→22:09)
[2018-08-10] MEDS: *HR* OxyCODONE ER (12 HR) 10 MG TABLET PO SCH ×2 (09:30→22:08)
[2018-08-10] MEDS: Furosemide 40 MG TABLET PO SCH ×2 (09:31→17:28)
[2018-08-10] MEDS: Multivit/Ca/Min/Fe/FA 1 TAB TABLET PO SCH (09:31)
[2018-08-10] MEDS: Ascorbic Acid 500 MG TABLET PO SCH (09:31)
[2018-08-10] MEDS: predniSONE 20 MG TABLET PO SCH (09:31)
[2018-08-10] MEDS: Insulin NPH/REG 70/30 100 UNIT/ML (x5UNIT) SQ SCH ×2 (09:31→22:09)
[2018-08-10] MEDS: Colestipol Hcl [Colestid] 2 GM PO SCH ×2 (09:32→22:10)
[2018-08-10] MEDS: Vilazodone Hcl [Viibryd] 40 MG PO SCH (09:33)
[2018-08-10] MEDS: Ipratropium/Albuterol Neb 3 ML IH PRN (12:03)
[2018-08-11] MEDS: Vilazodone Hcl [Viibryd] 40 MG PO SCH (08:05)
[2018-08-11] MEDS: *HR* OxyCODONE ER (12 HR) 10 MG TABLET PO SCH (08:06)
[2018-08-11] MEDS: Apixaban 5 MG TABLET PO SCH ×2 (08:08→20:45)
[2018-08-11] MEDS: predniSONE 20 MG TABLET PO SCH (08:08)
[2018-08-11] MEDS: Furosemide 40 MG TABLET PO SCH ×2 (08:08→17:40)
[2018-08-11] MEDS: Multivit/Ca/Min/Fe/FA 1 TAB TABLET PO SCH (08:08)
[2018-08-11] MEDS: Ascorbic Acid 500 MG TABLET PO SCH (08:08)
[2018-08-11] MEDS: Metoprolol XL (24 HR) Succ 50 MG TAB.ER.24H PO SCH (08:09)
[2018-08-11] MEDS: Colestipol Hcl [Colestid] 2 GM PO SCH ×2 (08:09→20:46)
[2018-08-11] MEDS: Insulin NPH/REG 70/30 100 UNIT/ML (x5UNIT) SQ SCH ×2 (08:09→20:46)
[2018-08-11] MEDS: Acetaminophen 325 MG TABLET PO PRN (17:40)
[2018-08-11] MEDS: Folic Acid 1 MG TABLET PO SCH (17:40)
[2018-08-11] MEDS: *HR* OxyCODONE ER (12 HR) 40 MG TABLET PO SCH (20:46)
[2018-08-12] MEDS: Ipratropium/Albuterol Neb 3 ML IH PRN (07:54)
[2018-08-12] MEDS: *HR* OxyCODONE ER (12 HR) 40 MG TABLET PO SCH ×2 (08:27→20:42)
[2018-08-12] MEDS: Apixaban 5 MG TABLET PO SCH ×2 (08:27→20:42)
[2018-08-12] MEDS: Ascorbic Acid 500 MG TABLET PO SCH (08:27)
[2018-08-12] MEDS: predniSONE 20 MG TABLET PO SCH (08:27)
[2018-08-12] MEDS: Metoprolol XL (24 HR) Succ 50 MG TAB.ER.24H PO SCH (08:27)
[2018-08-12] MEDS: Vilazodone Hcl [Viibryd] 40 MG PO SCH (08:28)
[2018-08-12] MEDS: Colestipol Hcl [Colestid] 2 GM PO SCH ×2 (08:28→20:43)
[2018-08-12] MEDS: Furosemide 40 MG TABLET PO SCH ×2 (08:28→16:54)
[2018-08-12] MEDS: Multivit/Ca/Min/Fe/FA 1 TAB TABLET PO SCH (08:28)
[2018-08-12] MEDS: Insulin NPH/REG 70/30 100 UNIT/ML (x5UNIT) SQ SCH ×2 (09:50→20:43)
--- NOTE | 2018-08-12 12:51 | Internal Med Progress Note ---
Date of Encounter: 08/12/18 Time of Encounter: 12:42 - Assessment and plan (1) Pneumonia Current Visit: No Status: Acute Assessment and plan: July 30. Continue doxycycline, Levaquin, prednisone, and lactobacillus through August 03. August 05. Recheck labs in a.m. August 09. WBC decreased to 14.1 on August 06. Recheck in a.m. August 12. WBC now normal at 10.9. Qualifiers: Pneumonia type: due to unspecified organism Laterality: left Lung location: lower lobe of lung Qualified Code(s): J18.1 - Lobar pneumonia, unspecified organism (2) Chronic atrial fibrillation Current Visit: No Status: Acute Assessment and plan: July 30. Continue Eliquis (3) Diabetes mellitus type 2 in obese Current Visit: No Status: Chronic Assessment and plan: July 30. Hemoglobin A1c was 6.1% on 06/18/2018. Continue Humalog 70/30 insulin and Accu-Cheks with SSI. August 01. Accu-Cheks acceptable. Continue present Rx. (4) Anemia Current Visit: No Status: Chronic Assessment and plan: July 30. Anemia testing showed iron 58, transferrin saturation 20%, transferrin 209, ferritin 66, B12 300, and folate 19.1. Qualifiers: Anemia type: unspecified type Qualified Code(s): D64.9 - Anemia, unspecif ied (5) Congestive heart failure Current Visit: No Status: Chronic Assessment and plan: July 30. BN peptide was 139 on 07/23/2018. Continue Lasix and Toprol Qualifiers: Heart failure type: diastolic Heart failure chronicity: acute on chronic Qualified Code(s): I50.33 - Acute on chronic diastolic (congestive) heart f ailure (6) Hypokalemia Current Visit: No Status: Acute Assessment and plan: August 09. Potassium level was 3.2 on 08/06/2018. Continue supplemental potassium and recheck in a.m. August 12. Potassium level slightly higher at 3.3. Increase supplemental potassium chloride to 50 mEq twice a day. (7) Rheumatoid arthritis Current Visit: No Status: Chronic Assessment and plan: August 09. Start prednisone 20 mg daily and taper as tolerated. August 12. Decrease prednisone to 15 mg daily. Qualifiers: Rheumatoid arthritis location: unspecified site Rheumatoid factor presence: unspecified presence Qualified Code(s): M06.9 - Rheumatoid arthritis, unspecified - Subjective Interval history: July 30. He has no new complaints. August 01. He has no new complaints and feels better. August 05. He has no new complaints and feels stronger. August 09. He states since prednisone taper (pneumonia treatment) has ended he has had worsening pain from rheumatoid arthritis. Reports his PCP occasionally used steroid bursts to treat previous similar episodes. August 12. He has no new complaints. He states his pain from rheumatoid arthritis has significantly decreased on prednisone. - Constitutional Vitals: Temp Pulse Resp BP Pulse Ox 98.0 F 88 20 133/75 98 08/12/18 06:53 08/12/18 06:53 08/12/18 06:53 08/12/18 06:53 08/12/18 06:53 Exam: He is resting comfortably in bed and appears in no acute distress. His affect is overall cheerful. I reviewed his medications and lab results. Internal Medicine: Result - Labs CBC & Chem 7: 08/10/18 06:25 08/10/18 06:25 Consult Discharge Plan - Plan Referrals: Valdo Morrow DO [Primary Care Provider] - 1 week
[2018-08-13] MEDS: *HR* OxyCODONE ER (12 HR) 40 MG TABLET PO SCH ×2 (09:06→21:12)
[2018-08-13] MEDS: Furosemide 40 MG TABLET PO SCH ×2 (09:06→18:29)
[2018-08-13] MEDS: Apixaban 5 MG TABLET PO SCH ×2 (09:07→21:06)
[2018-08-13] MEDS: Multivit/Ca/Min/Fe/FA 1 TAB TABLET PO SCH (09:07)
[2018-08-13] MEDS: Ascorbic Acid 500 MG TABLET PO SCH (09:07)
[2018-08-13] MEDS: predniSONE 10 MG TABLET PO SCH (09:07)
[2018-08-13] MEDS: Colestipol Hcl [Colestid] 2 GM PO SCH ×2 (09:08→21:12)
[2018-08-13] MEDS: Vilazodone Hcl [Viibryd] 40 MG PO SCH (09:08)
[2018-08-13] MEDS: Insulin NPH/REG 70/30 100 UNIT/ML (x5UNIT) SQ SCH ×2 (09:08→21:06)
[2018-08-13] MEDS: Ipratropium/Albuterol Neb 3 ML IH PRN (15:20)
[2018-08-13] MEDS: Metoprolol XL (24 HR) Succ 50 MG TAB.ER.24H PO SCH (15:34)
[2018-08-13] MEDS: Folic Acid 1 MG TABLET PO SCH (18:28)
[2018-08-14] MEDS: Ipratropium/Albuterol Neb 3 ML IH PRN (01:57)
[2018-08-14] MEDS: Vilazodone Hcl [Viibryd] 40 MG PO SCH (08:11)
[2018-08-14] MEDS: *HR* OxyCODONE ER (12 HR) 40 MG TABLET PO SCH ×2 (08:12→22:04)
[2018-08-14] MEDS: Apixaban 5 MG TABLET PO SCH ×2 (08:12→22:04)
[2018-08-14] MEDS: Ascorbic Acid 500 MG TABLET PO SCH (08:13)
[2018-08-14] MEDS: predniSONE 10 MG TABLET PO SCH (08:13)
[2018-08-14] MEDS: Multivit/Ca/Min/Fe/FA 1 TAB TABLET PO SCH (08:14)
[2018-08-14] MEDS: Furosemide 40 MG TABLET PO SCH ×2 (08:14→16:05)
[2018-08-14] MEDS: Acetaminophen 325 MG TABLET PO PRN (08:15)
[2018-08-14] MEDS: Metoprolol XL (24 HR) Succ 50 MG TAB.ER.24H PO SCH (08:15)
[2018-08-14] MEDS: Insulin NPH/REG 70/30 100 UNIT/ML (x5UNIT) SQ SCH ×2 (08:16→22:04)
[2018-08-14] MEDS: Colestipol Hcl [Colestid] 2 GM PO SCH ×2 (08:16→22:05)
[2018-08-15] MEDS: Acetaminophen 325 MG TABLET PO PRN ×2 (02:53→08:32)
[2018-08-15] MEDS: Ipratropium/Albuterol Neb 3 ML IH PRN ×2 (03:44→10:59)
[2018-08-15] MEDS: Ascorbic Acid 500 MG TABLET PO SCH (08:31)
[2018-08-15] MEDS: *HR* OxyCODONE ER (12 HR) 40 MG TABLET PO SCH ×2 (08:31→20:26)
[2018-08-15] MEDS: predniSONE 10 MG TABLET PO SCH (08:32)
[2018-08-15] MEDS: Furosemide 40 MG TABLET PO SCH ×2 (08:32→17:10)
[2018-08-15] MEDS: Multivit/Ca/Min/Fe/FA 1 TAB TABLET PO SCH (08:33)
[2018-08-15] MEDS: Metoprolol XL (24 HR) Succ 50 MG TAB.ER.24H PO SCH (08:34)
[2018-08-15] MEDS: Colestipol Hcl [Colestid] 2 GM PO SCH ×2 (08:34→20:27)
[2018-08-15] MEDS: Apixaban 5 MG TABLET PO SCH ×2 (08:34→20:27)
[2018-08-15] MEDS: Vilazodone Hcl [Viibryd] 40 MG PO SCH (08:41)
[2018-08-15] MEDS: Insulin NPH/REG 70/30 100 UNIT/ML (x5UNIT) SQ SCH ×2 (08:42→20:26)
--- NOTE | 2018-08-15 11:56 | Internal Med Progress Note ---
Date of Encounter: 08/15/18 Time of Encounter: 11:48 - Assessment and plan (1) Pneumonia Current Visit: No Status: Acute Assessment and plan: July 30. Continue doxycycline, Levaquin, prednisone, and lactobacillus through August 03. August 05. Recheck labs in a.m. August 09. WBC decreased to 14.1 on August 06. Recheck in a.m. August 12. WBC now normal at 10.9. Qualifiers: Pneumonia type: due to unspecified organism Laterality: left Lung location: lower lobe of lung Qualified Code(s): J18.1 - Lobar pneumonia, unspecified organism (2) Chronic atrial fibrillation Current Visit: No Status: Acute Assessment and plan: July 30. Continue Eliquis (3) Diabetes mellitus type 2 in obese Current Visit: No Status: Chronic Assessment and plan: July 30. Hemoglobin A1c was 6.1% on 06/18/2018. Continue Humalog 70/30 insulin and Accu-Cheks with SSI. August 01. Accu-Cheks acceptable. Continue present Rx. (4) Anemia Current Visit: No Status: Chronic Assessment and plan: July 30. Anemia testing showed iron 58, transferrin saturation 20%, transferrin 209, ferritin 66, B12 300, and folate 19.1. Qualifiers: Anemia type: unspecified type Qualified Code(s): D64.9 - Anemia, unspecif ied (5) Congestive heart failure Current Visit: No Status: Chronic Assessment and plan: July 30. BN peptide was 139 on 07/23/2018. Continue Lasix and Toprol Qualifiers: Heart failure type: diastolic Heart failure chronicity: acute on chronic Qualified Code(s): I50.33 - Acute on chronic diastolic (congestive) heart f ailure (6) Hypokalemia Current Visit: No Status: Acute Assessment and plan: August 09. Potassium level was 3.2 on 08/06/2018. Continue supplemental potassium and recheck in a.m. August 12. Potassium level slightly higher at 3.3. Increase supplemental potassium chloride to 50 mEq twice a day. August 15. Recheck labs in a.m. (7) Rheumatoid arthritis Current Visit: No Status: Chronic Assessment and plan: August 09. Start prednisone 20 mg daily and taper as tolerated. August 12. Decrease prednisone to 15 mg daily. August 15. Decrease prednisone to 10 mg daily. Qualifiers: Rheumatoid arthritis location: unspecified site Rheumatoid factor presence: unspecified presence Qualified Code(s): M06.9 - Rheumatoid arthritis, unspecif ied - Subjective Interval history: July 30. He has no new complaints. August 01. He has no new complaints and feels better. August 05. He has no new complaints and feels stronger. August 09. He states since prednisone taper (pneumonia treatment) has ended he has had worsening pain from rheumatoid arthritis. Reports his PCP occasionally used steroid bursts to treat previous similar episodes. August 12. He has no new complaints. He states his pain from rheumatoid arthritis has significantly decreased on prednisone. August 15. He states his bed is uncomfortable. He has no new complaints. He did not mention rheumatoid arthritis pain today. - Constitutional Vitals: Temp Pulse Resp BP Pulse Ox 97.5 F L 97 18 119/74 93 08/15/18 06:35 08/15/18 06:35 08/15/18 11:00 08/15/18 06:35 08/15/18 11:00 Exam: He is resting comfortably in bed and appears in no acute distress. His affect is overall cheerful. I reviewed his medications and lab results. Internal Medicine: Result - Labs CBC & Chem 7: 08/10/18 06:25 08/10/18 06:25 Consult Discharge Plan - Plan Referrals: Valdo Morrow DO [Primary Care Provider] - 1 week
[2018-08-15] MEDS: Folic Acid 1 MG TABLET PO SCH (17:10)
[2018-08-16] MEDS: Ipratropium/Albuterol Neb 3 ML IH PRN ×2 (02:35→09:37)
[2018-08-16] MEDS: Acetaminophen 325 MG TABLET PO PRN (06:57)
[2018-08-16 07:34] LABS: BUN/Creatinine Ratio 29 (6-26); Blood Urea Nitrogen 26 mg/dL (8-23); Calcium 8.4 mg/dL (8.6-10.3); Carbon Dioxide 39 mEq/L (23-29); Chloride 98 mEq/L (98-107); Glucose 147 mg/dL (70-105); Magnesium 2.1 mg/dL (1.6-2.6); Osmolality,Calculated 299 (280-300); Potassium 3.6 mEq/L (3.5-5.1); Sodium 141 mEq/L (136-145); eGFR For African Americans > 60 (> 60); eGFR For Non-African Americans > 60 (> 60)
[2018-08-16] MEDS: Colestipol Hcl [Colestid] 2 GM PO SCH ×2 (08:13→22:22)
[2018-08-16] MEDS: Furosemide 40 MG TABLET PO SCH ×2 (08:20→18:25)
[2018-08-16] MEDS: Vilazodone Hcl [Viibryd] 40 MG PO SCH (08:20)
[2018-08-16] MEDS: Multivit/Ca/Min/Fe/FA 1 TAB TABLET PO SCH (08:20)
[2018-08-16] MEDS: predniSONE 10 MG TABLET PO SCH (08:20)
[2018-08-16] MEDS: Metoprolol XL (24 HR) Succ 50 MG TAB.ER.24H PO SCH (08:20)
[2018-08-16] MEDS: *HR* OxyCODONE ER (12 HR) 40 MG TABLET PO SCH ×2 (08:20→22:24)
[2018-08-16] MEDS: Ascorbic Acid 500 MG TABLET PO SCH (08:21)
[2018-08-16] MEDS: Apixaban 5 MG TABLET PO SCH ×2 (08:21→22:20)
[2018-08-16] MEDS: Insulin NPH/REG 70/30 100 UNIT/ML (x5UNIT) SQ SCH ×2 (09:05→22:21)
[2018-08-17] MEDS: Acetaminophen 325 MG TABLET PO PRN ×3 (02:24→17:14)
[2018-08-17] MEDS: *HR* OxyCODONE ER (12 HR) 40 MG TABLET PO SCH ×2 (08:49→22:23)
[2018-08-17] MEDS: Metoprolol XL (24 HR) Succ 50 MG TAB.ER.24H PO SCH (08:50)
[2018-08-17] MEDS: Apixaban 5 MG TABLET PO SCH ×2 (08:50→22:23)
[2018-08-17] MEDS: Furosemide 40 MG TABLET PO SCH ×2 (08:50→17:14)
[2018-08-17] MEDS: Ascorbic Acid 500 MG TABLET PO SCH (08:50)
[2018-08-17] MEDS: predniSONE 10 MG TABLET PO SCH (08:50)
[2018-08-17] MEDS: Multivit/Ca/Min/Fe/FA 1 TAB TABLET PO SCH (08:50)
[2018-08-17] MEDS: Colestipol Hcl [Colestid] 2 GM PO SCH ×2 (08:51→22:31)
[2018-08-17] MEDS: Vilazodone Hcl [Viibryd] 40 MG PO SCH (08:51)
[2018-08-17] MEDS: Insulin NPH/REG 70/30 100 UNIT/ML (x5UNIT) SQ SCH ×2 (08:56→22:36)
[2018-08-17] MEDS: Folic Acid 1 MG TABLET PO SCH (17:14)
--- NOTE | 2018-08-17 18:00 | Internal Med Progress Note ---
Date of Encounter: 08/17/18 Time of Encounter: 17:55 - Assessment and plan (1) Pneumonia Current Visit: No Status: Acute Assessment and plan: July 30. Continue doxycycline, Levaquin, prednisone, and lactobacillus through August 03. August 05. Recheck labs in a.m. August 09. WBC decreased to 14.1 on August 06. Recheck in a.m. August 12. WBC now normal at 10.9. Qualifiers: Pneumonia type: due to unspecified organism Laterality: left Lung location: lower lobe of lung Qualified Code(s): J18.1 - Lobar pneumonia, unspecified organism (2) Chronic atrial fibrillation Current Visit: No Status: Acute Assessment and plan: July 30. Continue Eliquis (3) Diabetes mellitus type 2 in obese Current Visit: No Status: Chronic Assessment and plan: July 30. Hemoglobin A1c was 6.1% on 06/18/2018. Continue Humalog 70/30 insulin and Accu-Cheks with SSI. August 01. Accu-Cheks acceptable. Continue present Rx. August 17. Accu-Chek slightly above desirable level. Increase Humalog 70/30 insulin to 30 units twice a day (4) Anemia Current Visit: No Status: Chronic Assessment and plan: July 30. Anemia testing showed iron 58, transferrin saturation 20%, transferrin 209, ferritin 66, B12 300, and folate 19.1. Qualifiers: Anemia type: unspecified type Qualified Code(s): D64.9 - Anemia, unspecified (5) Congestive heart failure Current Visit: No Status: Chronic Assessment and plan: July 30. BN peptide was 139 on 07/23/2018. Continue Lasix and Toprol Qualifiers: Heart failure type: diastolic Heart failure chronicity: acute on chronic Qualified Code(s): I50.33 - Acute on chronic diastolic (congestive) heart failure (6) Hypokalemia Current Visit: No Status: Acute Assessment and plan: August 09. Potassium level was 3.2 on 08/06/2018. Continue supplemental potassium and recheck in a.m. August 12. Potassium level slightly higher at 3.3. Increase supplemental potassium chloride to 50 mEq twice a day. August 15. Recheck labs in a.m. August 17. Recheck labs in a.m. (7) Rheumatoid arthritis Current Visit: No Status: Chronic Assessment and plan: August 09. Start prednisone 20 mg daily and taper as tolerated. August 12. Decrease prednisone to 15 mg daily. August 15. Decrease prednisone to 10 mg daily. August 17. Increase prednisone back to 15 mg daily because of worsening pain. Change Tylenol from prn to scheduled. Qualifiers: Rheumatoid arthritis location: unspecified site Rheumatoid factor presence: unspecified presence Qualified Code(s): M06.9 - Rheumatoid arthritis, unspecified - Subjective Interval history: July 30. He has no new complaints. August 01. He has no new complaints and feels better. August 05. He has no new complaints and feels stronger. August 09. He states since prednisone taper (pneumonia treatment) has ended he has had worsening pain from rheumatoid arthritis. Reports his PCP occasionally used steroid bursts to treat previous similar episodes. August 12. He has no new complaints. He states his pain from rheumatoid arthritis has significantly decreased on prednisone. August 15. He states his bed is uncomfortable. He has no new complaints. He did not mention rheumatoid arthritis pain today. August 17. He states he is in more pain today in his neck and interscapular area. He has had no fall or injury. He has no other new complaints. - Constitutional Vitals: Temp Pulse Resp BP Pulse Ox 97.9 F 90 18 115/74 95 08/17/18 07:10 08/17/18 07:10 08/17/18 07:10 08/17/18 07:10 08/17/18 07:10 Exam: He is resting in bed and appears in no acute distress. His affect is overall cheerful. He does not appear to be in significant pain. I reviewed his medicat ions and lab results. Internal Medicine: Result - Labs CBC & Chem 7: 08/10/18 06:25 08/16/18 07:00 Consult Discharge Plan - Plan Referrals: Valdo Morrow DO [Primary Care Provider] - 1 week
[2018-08-17] MEDS: Acetaminophen 325 MG TABLET PO SCH (18:59)
[2018-08-18] MEDS: Acetaminophen 325 MG TABLET PO SCH ×5 (00:40→23:17)
[2018-08-18] MEDS: Ipratropium/Albuterol Neb 3 ML IH PRN (01:53)
[2018-08-18] MEDS: Ascorbic Acid 500 MG TABLET PO SCH (06:48)
[2018-08-18 07:46] LABS: Basophils # 0.1 K/mcL (0.0-0.2); Basophils % 0.6 %; Eosinophils # 0.3 K/mcL (0.0-0.6); Eosinophils % 3.9 %; Hematocrit 36.2 % (37.5-50.1); Hemoglobin 10.8 g/dL (12.9-16.9); Immature Granulocytes % 0.6 % (0-4); Lymphocytes # 1.7 K/mcL (0.6-4.6); Lymphocytes % 19.3 %; Mean Corpuscular HGB Conc 29.8 g/dL (31.6-35.5); Mean Corpuscular Hemoglobin 24.9 pg (28.0-33.3); Mean Corpuscular Volume 83.4 fL (83.0-100.0); Monocytes # 0.5 K/mcL (0.0-1.3); Monocytes % 5.9 %; Neutrophils # 6.1 K/mcL (1.6-8.9); Platelet Count 229 K/mcL (140-400); Red Blood Count 4.34 M/mcL (4.19-5.50); Red Cell Distribution Width 17.4 % (11.5-14.5); Segmented Neutrophils % 69.7 %; White Blood Count 8.8 K/mcL (4.3-11.1)
[2018-08-18 07:54] LABS: BUN/Creatinine Ratio 24 (6-26); Blood Urea Nitrogen 21 mg/dL (8-23); Calcium 8.4 mg/dL (8.6-10.3); Carbon Dioxide 38 mEq/L (23-29); Chloride 96 mEq/L (98-107); Glucose 207 mg/dL (70-105); Osmolality,Calculated 297 (280-300); Potassium 3.4 mEq/L (3.5-5.1); Sodium 139 mEq/L (136-145); Uric Acid 6.7 mg/dL (2.3-7.6); eGFR For African Americans > 60 (> 60); eGFR For Non-African Americans > 60 (> 60)
[2018-08-18] MEDS: Insulin NPH/REG 70/30 100 UNIT/ML (x5UNIT) SQ SCH ×2 (08:30→23:16)
[2018-08-18] MEDS: Metoprolol XL (24 HR) Succ 50 MG TAB.ER.24H PO SCH (08:31)
[2018-08-18] MEDS: Colestipol Hcl [Colestid] 2 GM PO SCH ×2 (08:31→23:17)
[2018-08-18] MEDS: Vilazodone Hcl [Viibryd] 40 MG PO SCH (08:31)
[2018-08-18] MEDS: *HR* OxyCODONE ER (12 HR) 40 MG TABLET PO SCH ×2 (08:31→20:04)
[2018-08-18] MEDS: Multivit/Ca/Min/Fe/FA 1 TAB TABLET PO SCH (08:31)
[2018-08-18] MEDS: predniSONE 10 MG TABLET PO SCH (08:31)
[2018-08-18] MEDS: Furosemide 40 MG TABLET PO SCH ×2 (08:31→18:41)
[2018-08-18] MEDS: Apixaban 5 MG TABLET PO SCH ×2 (08:31→20:05)
[2018-08-19] MEDS: Acetaminophen 325 MG TABLET PO SCH ×4 (05:28→23:15)
[2018-08-19] MEDS: Ascorbic Acid 500 MG TABLET PO SCH (05:29)
[2018-08-19] MEDS: Oxymetazoline Nasal SPRAY BOTTLE NS SCH ×4 (09:15→17:48)
[2018-08-19] MEDS: Apixaban 5 MG TABLET PO SCH ×2 (09:18→20:10)
[2018-08-19] MEDS: Furosemide 40 MG TABLET PO SCH ×2 (09:19→17:41)
[2018-08-19] MEDS: predniSONE 10 MG TABLET PO SCH (09:19)
[2018-08-19] MEDS: Multivit/Ca/Min/Fe/FA 1 TAB TABLET PO SCH (09:20)
[2018-08-19] MEDS: *HR* OxyCODONE ER (12 HR) 40 MG TABLET PO SCH ×2 (09:20→20:10)
[2018-08-19] MEDS: Metoprolol XL (24 HR) Succ 50 MG TAB.ER.24H PO SCH (09:20)
[2018-08-19] MEDS: Vilazodone Hcl [Viibryd] 40 MG PO SCH (09:20)
[2018-08-19] MEDS: Insulin NPH/REG 70/30 100 UNIT/ML (x5UNIT) SQ SCH ×2 (09:21→20:10)
[2018-08-19] MEDS: Colestipol Hcl [Colestid] 2 GM PO SCH ×2 (09:31→23:00)
--- NOTE | 2018-08-19 13:24 | Internal Med Progress Note ---
Date of Encounter: 08/19/18 Time of Encounter: 13:15 - Assessment and plan (1) Pneumonia Current Visit: No Status: Acute Assessment and plan: July 30. Continue doxycycline, Levaquin, prednisone, and lactobacillus through August 03. August 05. Recheck labs in a.m. August 09. WBC decreased to 14.1 on August 06. Recheck in a.m. August 12. WBC now normal at 10.9. Qualifiers: Pneumonia type: due to unspecified organism Laterality: left Lung location: lower lobe of lung Qualified Code(s): J18.1 - Lobar pneumonia, unspecified organism (2) Chronic atrial fibrillation Current Visit: No Status: Acute Assessment and plan: July 30. Continue Eliquis (3) Diabetes mellitus type 2 in obese Current Visit: No Status: Chronic Assessment and plan: July 30. Hemoglobin A1c was 6.1% on 06/18/2018. Continue Humalog 70/30 insulin and Accu-Cheks with SSI. August 01. Accu-Cheks acceptable. Continue present Rx. August 17. Accu-Chek slightly above desirable level. Increase Humalog 70/30 insulin to 30 units twice a day (4) Anemia Current Visit: No Status: Chronic Assessment and plan: July 30. Anemia testing showed iron 58, transferrin saturation 20%, transferrin 209, ferritin 66, B12 300, and folate 19.1. August 19. Hemoglobin slightly decreased at 10.8. Continue to monitor. Qualifiers: Anemia type: unspecified type Qualified Code(s): D64.9 - Anemia, unspecified (5) Congestive heart failure Current Visit: No Status: Chronic Assessment and plan: July 30. BN peptide was 139 on 07/23/2018. Continue Lasix and Toprol August 19. BN peptide further decreased to 103. Continue present Rx Qualifiers: Heart failure type: diastolic Heart failure chronicity: acute on chronic Qualified Code(s): I50.33 - Acute on chronic diastolic (congestive) heart failure (6) Hypokalemia Current Visit: No Status: Acute Assessment and plan: August 09. Potassium level was 3.2 on 08/06/2018. Continue supplemental potassium and recheck in a.m. August 12. Potassium level slightly higher at 3.3. Increase supplemental pot assium chloride to 50 mEq twice a day. August 15. Recheck labs in a.m. August 17. Recheck labs in a.m. August 19. Potassium level 3.4. Increase supplemental potassium chloride to 60 mEq twice a day. (7) Rheumatoid arthritis Current Visit: No Status: Chronic Assessment and plan: August 09. Start prednisone 20 mg daily and taper as tolerated. August 12. Decrease prednisone to 15 mg daily. August 15. Decrease prednisone to 10 mg daily. August 17. Increase prednisone back to 15 mg daily because of worsening pain. Change Tylenol from prn to scheduled. Qualifiers: Rheumatoid arthritis location: unspecified site Rheumatoid factor presence: unspecified presence Qualified Code(s): M06.9 - Rheumatoid arthritis, unspecified - Subjective Interval history: July 30. He has no new complaints. August 01. He has no new complaints and feels better. August 05. He has no new complaints and feels stronger. August 09. He states since prednisone taper (pneumonia treatment) has ended he has had worsening pain from rheumatoid arthritis. Reports his PCP occasionally used steroid bursts to treat previous similar episodes. August 12. He has no new complaints. He states his pain from rheumatoid arthritis has significantly decreased on prednisone. August 15. He states his bed is uncomfortable. He has no new complaints. He did not mention rheumatoid arthritis pain today. August 17. He states he is in more pain today in his neck and interscapular area. He has had no fall or injury. He has no other new complaints. August 19. He has no new complaints. He states the pain in his neck and interscapular area is stable to slightly improved. He is anticipating discharge home August 22. - Constitutional Vitals: Temp Pulse Resp BP Pulse Ox 98.0 F 87 20 104/65 96 08/19/18 07:52 08/19/18 07:52 08/19/18 07:52 08/19/18 07:52 08/19/18 07:52 Exam: He is resting comfortably in bed and appears in no acute distress. His affect is overall cheerful. I reviewed his medications and lab results. Internal Medicine: Result - Labs CBC & Chem 7: 08/18/18 07:07 08/18/18 07:07 Consult Discharge Plan - Plan Referrals: Valdo Morrow DO [Primary Care Provider] - 1 week
[2018-08-19] MEDS: Folic Acid 1 MG TABLET PO SCH (17:42)
[2018-08-20] MEDS: Ipratropium/Albuterol Neb 3 ML IH PRN ×2 (00:20→13:32)
[2018-08-20] MEDS: Oxymetazoline Nasal SPRAY BOTTLE NS SCH ×3 (05:05→17:01)
[2018-08-20] MEDS: Acetaminophen 325 MG TABLET PO SCH ×3 (05:05→16:58)
[2018-08-20] MEDS: Ascorbic Acid 500 MG TABLET PO SCH (05:06)
[2018-08-20] MEDS: Insulin NPH/REG 70/30 100 UNIT/ML (x5UNIT) SQ SCH ×2 (09:02→21:54)
[2018-08-20] MEDS: predniSONE 10 MG TABLET PO SCH (09:03)
[2018-08-20] MEDS: *HR* OxyCODONE ER (12 HR) 40 MG TABLET PO SCH ×2 (09:03→21:51)
[2018-08-20] MEDS: Metoprolol XL (24 HR) Succ 50 MG TAB.ER.24H PO SCH (09:04)
[2018-08-20] MEDS: Apixaban 5 MG TABLET PO SCH ×2 (09:04→21:51)
[2018-08-20] MEDS: Furosemide 40 MG TABLET PO SCH ×2 (09:04→16:58)
[2018-08-20] MEDS: Multivit/Ca/Min/Fe/FA 1 TAB TABLET PO SCH (09:04)
[2018-08-20] MEDS: Colestipol Hcl [Colestid] 2 GM PO SCH ×2 (09:09→21:53)
[2018-08-20] MEDS: Vilazodone Hcl [Viibryd] 40 MG PO SCH (09:14)
[2018-08-21] MEDS: Acetaminophen 325 MG TABLET PO SCH ×5 (00:20→22:55)
[2018-08-21] MEDS: Ascorbic Acid 500 MG TABLET PO SCH (06:17)
[2018-08-21] MEDS: Furosemide 40 MG TABLET PO SCH ×2 (06:17→17:26)
[2018-08-21] MEDS: Oxymetazoline Nasal SPRAY BOTTLE NS SCH ×2 (06:23→17:27)
[2018-08-21] MEDS: Colestipol Hcl [Colestid] 2 GM PO SCH ×2 (07:40→22:57)
[2018-08-21] MEDS: *HR* OxyCODONE ER (12 HR) 40 MG TABLET PO SCH ×2 (10:04→22:55)
[2018-08-21] MEDS: Multivit/Ca/Min/Fe/FA 1 TAB TABLET PO SCH (10:04)
[2018-08-21] MEDS: Metoprolol XL (24 HR) Succ 50 MG TAB.ER.24H PO SCH (10:04)
[2018-08-21] MEDS: predniSONE 10 MG TABLET PO SCH (10:04)
[2018-08-21] MEDS: Insulin NPH/REG 70/30 100 UNIT/ML (x5UNIT) SQ SCH ×2 (10:04→22:57)
[2018-08-21] MEDS: Apixaban 5 MG TABLET PO SCH ×2 (10:04→22:55)
[2018-08-21] MEDS: Vilazodone Hcl [Viibryd] 40 MG PO SCH (10:05)
[2018-08-21] MEDS: Folic Acid 1 MG TABLET PO SCH (17:26)
[2018-08-22 06:35] VITALS: BP 143/78
[2018-08-22] MEDS: Acetaminophen 325 MG TABLET PO SCH ×2 (06:35→12:34)
[2018-08-22] MEDS: Ascorbic Acid 500 MG TABLET PO SCH (06:36)
[2018-08-22] MEDS: Colestipol Hcl [Colestid] 2 GM PO SCH (08:22)
[2018-08-22] MEDS: *HR* OxyCODONE ER (12 HR) 40 MG TABLET PO SCH (09:05)
[2018-08-22] MEDS: Furosemide 40 MG TABLET PO SCH (09:05)
[2018-08-22] MEDS: Apixaban 5 MG TABLET PO SCH (09:05)
[2018-08-22] MEDS: predniSONE 10 MG TABLET PO SCH (09:05)
[2018-08-22] MEDS: Metoprolol XL (24 HR) Succ 50 MG TAB.ER.24H PO SCH (09:06)
[2018-08-22] MEDS: Vilazodone Hcl [Viibryd] 40 MG PO SCH (09:06)
[2018-08-22] MEDS: Multivit/Ca/Min/Fe/FA 1 TAB TABLET PO SCH (09:06)
[2018-08-22] MEDS: Insulin NPH/REG 70/30 100 UNIT/ML (x5UNIT) SQ SCH (09:06)
[2018-08-22] MEDS: Ipratropium/Albuterol Neb 3 ML IH PRN (09:11)
--- NOTE | 2018-08-22 09:32 | Discharge Summary ---
Date of Encounter: 08/22/18 Time of Encounter: 09:20 - Discharge Diagnosis (1) Pneumonia Priority: Primary Status: Resolved Qualifiers: Pneumonia type: due to unspecified organism Laterality: left Lung location: lower lobe of lung Qualified Code(s): J18.1 - Lobar pneumonia, unspecified organism (2) Chronic atrial fibrillation Priority: Secondary Status: Chronic (3) Diabetes mellitus type 2 in obese Priority: Secondary Status: Chronic (4) Anemia Priority: Secondary Status: Chronic Qualifiers: Anemia type: unspecified type Qualified Code(s): D64.9 - Anemia, unspecified (5) Congestive heart failure Priority: Secondary Status: Chronic Qualifiers: Heart failure type: diastolic Heart failure chronicity: acute on chronic Qualified Code(s): I50.33 - Acute on chronic diastolic (congestive) heart failure (6) Hypokalemia Priority: Secondary Status: Acute (7) Rheumatoid arthritis Priority: Secondary Status: Chronic Qualifiers: Rheumatoid arthritis location: unspecified site Rheumatoid factor presence: unspecified presence Qualified Code(s): M06.9 - Rheumatoid arthritis, unspecified Hospital course: Mr. Belcher is a 68 year old male who was transferred to [facility] swing bed July 28 following a July 1117 stay at [facility] where he received treatment for acute on chronic heart failure, COPD exacerbation, and pneumonia. He was discharged on ongoing antibiotics to be completed August 03. He is also receiving oral steroids. Initial orders were written by the discharging physicians at [facility]. I saw him on July 29 and performed the swing bed history and physical. He completed a course of doxycycline and Levaquin through August 03. He had no evidence of ongoing or recurrent pneumonia following discontinuation of antibiotics. He had physical therapy and occupational therapy evaluation with ongoing intervention. He made slight progress in therapy. Anemia testing showed iron 58, transferrin saturation 20%, transferrin 209, ferritin 66, B12 300, and folate 19.1. He will continue with ferrous sulfate and ascorbic acid at home. He required additional supplemental potassium to maintain normal potassium level. He will continue higher dose KCl at discharge. On August 22 arrangements were complete for him to be discharged home. He will follow with his PCP Valdo Morrow DO within 1 week. Home health services will be ordered. - Time Spent with Patient Total time spent providing and/or coordinating discharge services: - Discharge Medications Prescriptions: New Ascorbic Acid [Vitamin C] 500 mg PO DAILY@0630 tablet Potassium Chloride 60 meq PO BIDWM tab.er.prt Continued Ipratropium/Albuterol Neb [Duoneb] 3 ml IH Q4H PRN PRN Reason: Shortness Of Breath Apixaban [Eliquis] 5 mg PO BID Tamsulosin [Flomax] 0.4 mg PO DAILY Metoprolol XL (24 HR) Succ [Toprol Xl] 50 mg PO DAILY Multivits,Ca,Min/Iron/FA/Lycop [Centrum Men's Tablet] 1 tab PO DAILY OxyCODONE ER (12 HR) [OxyCONTIN] 80 mg PO Q12H Furosemide [Lasix] 80 mg PO BID #30 tablet Clotrimazole/Betamethasone Dip [Lotrisone Cream] 15 gm TP BID PRN PRN Reason: IRRITATED SKIN Colestipol HCl [Colestid] 2 gm PO BID Ferrous Sulfate 650 mg PO QAM Hyoscyamine SL [Levsin Sl] 0.125 mg SL Q4HR PRN PRN Reason: Abdominal Cramping Levothyroxine Sodium 100 mcg PO 0630 Vilazodone HCl [Viibryd] 40 mg PO DAILY Ascorbic Acid [Vitamin C] 500 mg PO QAM predniSONE [PredniSONE] 20 mg PO DAILY #10 tablet Folic Acid 1 mg PO Q48H tablet Changed Insulin Lispro Protamin/Lispro [Humalog Mix 75-25 Kwikpen] 30 unit SQ BID #0 Discontinued Potassium Chloride 40 meq PO BID #30 tab.er.prt Doxycycline 100 mg PO BID #14 capsule levoFLOXacin [Levaquin] 750 mg PO DAILY #7 tablet Home Medications: Apixaban [Eliquis] 5 mg PO BID 02/26/15 [History] Ipratropium/Albuterol Neb [Duoneb] 3 ml IH Q4H PRN 02/26/15 [History] Metoprolol XL (24 HR) Succ [Toprol Xl] 50 mg PO DAILY 10/07/16 [History] Tamsulosin [Flomax] 0.4 mg PO DAILY 10/07/16 [History] Multivits,Ca,Min/Iron/FA/Lycop [Centrum Men's Tablet] 1 tab PO DAILY 10/17/16 [History] OxyCODONE ER (12 HR) [OxyCONTIN] 80 mg PO Q12H 03/30/17 [History] Furosemide [Lasix] 80 mg PO BID #30 tablet 04/03/17 [Rx] Folic Acid 1 mg PO Q48H tablet 04/17/17 [Rx] Clotrimazole/Betamethasone Dip [Lotrisone Cream] 15 gm TP BID PRN 06/18/18 [History] Colestipol HCl [Colestid] 2 gm PO BID 06/18/18 [History] Ferrous Sulfate 650 mg PO QAM 06/18/18 [History] Hyoscyamine SL [Levsin Sl] 0.125 mg SL Q4HR PRN 06/18/18 [History] Levothyroxine Sodium 100 mcg PO 0630 06/18/18 [History] Vilazodone HCl [Viibryd] 40 mg PO DAILY 06/18/18 [History] Ascorbic Acid [Vitamin C] 500 mg PO QAM 07/20/18 [History] predniSONE [PredniSONE] 20 mg PO DAILY #10 tablet 07/27/18 [Rx] Ascorbic Acid [Vitamin C] 500 mg PO DAILY@0630 tablet 08/22/18 [Rx] Insulin Lispro Protamin/Lispro [Humalog Mix 75-25 Kwikpen] 30 unit SQ BID #0 08/22/18 [Rx] Potassium Chloride 60 meq PO BIDWM tab.er.prt 08/22/18 [Rx] Allergies/Adverse Reactions: Allergy/AdvReac Type Severity Reaction Status Date / Time clindamycin AdvReac Diarrhea Verified 11/23/16 07:17 Date of admission: 07/28/18 17:17 Primary care physician: Valdo Morrow, Consults: 07/28/18 16:17 Consult to Occupational Therapy [CONS] Routine Comment: Evaluate, develop and implement POC Reason for Consult: Evaluate, develop and implement POC Does patient have active BEDREST order?: No Is patient medically & hemodynamically stable?: Yes Patient assessed for mobility or mobilized this visit?: No Consult to Physical Therapy [CONS] Routine Comment: Evaluate, develop and implement POC Reason for Consult: Evaluate, develop and implement POC Does patient have active BEDREST order?: No Is patient medically & hemodynamically stable?: Yes Patient assessed for mobility or mobilized this visit?: No 07/28/18 18:01 Consult to Architect Internship [CONS] Routine Reason for SW Consult: Patient is bedbound and lives at home with . works fulltime. May need home health or possible ECF placement. - Constitutional Vitals: Temp Pulse Resp BP Pulse Ox 97.9 F 112 18 143/78 95 08/22/18 06:33 08/22/18 06:33 08/22/18 06:33 08/22/18 06:33 08/22/18 06:33 - Patient Status Disposition: Home Health Service - Discharge Instructions Follow Up With: Valdo Morrow DO [Primary Care Provider] - 1 week - Diet and Activity Activity: as per physical therapy Diet: diabetic diet
--- NOTE | 2018-08-22 09:38 | Physician Discharge Referral ---
Home Health/Hosp Referral Info Transfer to: Home Health Attending Provider: Raymundo Provider in Charge Post Discharge: PCP Marques) - Diagnosis (1) Pneumonia Priority: Primary Status: Resolved (2) Chronic atrial fibrillation Priority: Secondary Status: Chronic (3) Diabetes mellitus type 2 in obese Priority: Secondary Status: Chronic (4) Anemia Priority: Secondary Status: Chronic (5) Congestive heart failure Priority: Secondary Status: Chronic (6) Hypokalemia Priority: Secondary Status: Acute (7) Rheumatoid arthritis Priority: Secondary Status: Chronic - Respiratory Orders Smoking Cessation: Smoking cessation has been advised. For more information, call the [place] Tobacco Quit Line at 4-922-AFDZ-NOW. - Diet/Nutrition Diet/Nutrition Orders: No Concentrated Sweets - Activity Activity Orders: Chair, Walker - Services Needed Following services are medically necessary services: Nursing, Home Health Aide, Physical Therapy, Occupational Therapy - Transfer Medications Home Medications: Apixaban [Eliquis] 5 mg PO BID 02/26/15 [History] Ipratropium/Albuterol Neb [Duoneb] 3 ml IH Q4H PRN 02/26/15 [History] Metoprolol XL (24 HR) Succ [Toprol Xl] 50 mg PO DAILY 10/07/16 [History] Tamsulosin [Flomax] 0.4 mg PO DAILY 10/07/16 [History] Multivits,Ca,Min/Iron/FA/Lycop [Centrum Men's Tablet] 1 tab PO DAILY 10/17/16 [History] OxyCODONE ER (12 HR) [OxyCONTIN] 80 mg PO Q12H 03/30/17 [History] Furosemide [Lasix] 80 mg PO BID #30 tablet 04/03/17 [Rx] Folic Acid 1 mg PO Q48H tablet 04/17/17 [Rx] Clotrimazole/Betamethasone Dip [Lotrisone Cream] 15 gm TP BID PRN 06/18/18 [History] Colestipol HCl [Colestid] 2 gm PO BID 06/18/18 [History] Ferrous Sulfate 650 mg PO QAM 06/18/18 [History] Hyoscyamine SL [Levsin Sl] 0.125 mg SL Q4HR PRN 06/18/18 [History] Levothyroxine Sodium 100 mcg PO 0630 06/18/18 [History] Vilazodone HCl [Viibryd] 40 mg PO DAILY 06/18/18 [History] Ascorbic Acid [Vitamin C] 500 mg PO QAM 07/20/18 [History] predniSONE [PredniSONE] 20 mg PO DAILY #10 tablet 07/27/18 [Rx] Ascorbic Acid [Vitamin C] 500 mg PO DAILY@0630 tablet 08/22/18 [Rx] Insulin Lispro Protamin/Lispro [Humalog Mix 75-25 Kwikpen] 30 unit SQ BID #0 08/22/18 [Rx] Potassium Chloride 60 meq PO BIDWM tab.er.prt 08/22/18 [Rx] Allergies/Adverse Reactions: Allergy/AdvReac Type Severity Reaction Status Date / Time clindamycin AdvReac Diarrhea Verified 11/23/16 07:17 Certification: Further, I certify that my clinical findings support that this patient is homebound (i.e. absences from home require considerable and taxing effort and are for medical reasons or restorationist services or infrequently or short duration when for other reasons) because: Homebound Reason: Leaving home requires considerable and taxing effort due to condition (Impaired walking ability) Attestation: My signature below is to certify that this patient is under my care and that I, or nurse practitioner, or a physician's music library assistant working with me, has a [id number] encounter with this patient.
== END 2018-08-22 14:05 | disposition home health service (06) | DRG 193 ==
LOC: INPPIK 17:17
PROVIDERS: ADMIT Internal Medicine; ATTEND Internal Medicine